=== PATIENT | female | born 1955 | race Caucasian/White ===

== ENCOUNTER → 2019-03-12 08:43 | Outpatient (BNVA) | payer BC, SELFPAY | PROVIDERS: PCP Registered Nurse; Visit Provider Registered Nurse | DX: E78.5 Hyperlipidemia, unspecified (principal); E55.9 Vitamin D deficiency, unspecified; I10 Essential (primary) hypertension; E03.9 Hypothyroidism, unspecified; F32.9 Major depressive disorder, single episode, unspecified; J30.2 Other seasonal allergic rhinitis | CPT/HCPCS: 80053; 80061; 82306; 84443; 85025 ==

== ENCOUNTER → 2019-08-20 11:23 | Outpatient (BNVA) | payer BC, SELFPAY | PROVIDERS: PCP Registered Nurse; Visit Provider Registered Nurse | DX: I10 Essential (primary) hypertension (principal); E55.9 Vitamin D deficiency, unspecified; E03.9 Hypothyroidism, unspecified; J30.2 Other seasonal allergic rhinitis; F32.9 Major depressive disorder, single episode, unspecified; E78.5 Hyperlipidemia, unspecified | CPT/HCPCS: 80053; 82306; 84443 ==

== ENCOUNTER → 2020-03-04 09:04 | Outpatient (BNVA) | payer OTHER, SELFPAY | PROVIDERS: PCP Registered Nurse; Visit Provider Registered Nurse | DX: I10 Essential (primary) hypertension (principal); E78.5 Hyperlipidemia, unspecified; E03.9 Hypothyroidism, unspecified; F32.9 Major depressive disorder, single episode, unspecified; J30.2 Other seasonal allergic rhinitis; K21.9 Gastro-esophageal reflux disease without esophagitis; Z00.00 Encounter for general adult medical examination without abnormal findings; E55.9 Vitamin D deficiency, unspecified | CPT/HCPCS: 80053; 80061; 81000; 84443; 85025 ==

== ENCOUNTER 2020-05-21 14:30 | Outpatient (CLI) | payer OTHER, SELFPAY ==
--- NOTE | 2020-05-21 15:00 | US_ITS ---
WS: [id number] RIGHT UPPER QUADRANT ULTRASOUND HISTORY: R10.11 - Right upper quadrant pain COMPARISON: None available. Liver: 20.8 cm in length. Marked enlargement of the liver with severe hepatic steatosis. Attenuation of the ultrasound due to the severe hepatic steatosis. The entire liver is not well visualized. No bi le duct dilatation or mass. Gallbladder: Normally distended gallbladder with no stones or wall thickening. CBD: 0.4 cm Pancreas: Not visualized. Right kidney: 13.2 cm in length. Normal size and echogenicity. No hydronephrosis or mass. Aorta and IVC: Unremarkable abdominal aorta and IVC. No ascites. US/US gall bladder [id number] IMPRESSION: 1. Limited RIGHT upper quadrant ultrasound due to body habitus. 2. Marked hepatomegaly and hepatic steatosis. 3. Negative gallbladder.
== END 2020-05-21 14:31 | disposition home or self-care (01) ==
PROVIDERS: PCP Registered Nurse; Visit Provider Registered Nurse
DX: R10.11 Right upper quadrant pain (principal); R16.0 Hepatomegaly, not elsewhere classified; K76.0 Fatty (change of) liver, not elsewhere classified
CPT/HCPCS: 76705; 81000

== ENCOUNTER → 2020-05-25 15:18 | Outpatient (BNVA) | payer OTHER, SELFPAY | PROVIDERS: PCP Registered Nurse; Visit Provider Registered Nurse | DX: R16.0 Hepatomegaly, not elsewhere classified (principal); Z71.3 Dietary counseling and surveillance | CPT/HCPCS: 80053; 86705; 86706; 86709; 86803; 87340 ==

== ENCOUNTER → 2020-11-17 11:12 | Outpatient (BNVA) | payer OTHER, SELFPAY | PROVIDERS: PCP Registered Nurse; Visit Provider Registered Nurse | DX: I10 Essential (primary) hypertension (principal); E03.9 Hypothyroidism, unspecified; Z12.31 Encounter for screening mammogram for malignant neoplasm of breast | CPT/HCPCS: 80053; 80061; 84443 ==

== ENCOUNTER → 2020-11-24 11:14 | Outpatient (BNVA) | payer OTHER, MEDICARE, SELFPAY | PROVIDERS: PCP Registered Nurse; Visit Provider Registered Nurse | DX: L98.9 Disorder of the skin and subcutaneous tissue, unspecified (principal) | CPT/HCPCS: 88305 ==

== ENCOUNTER → 2021-07-29 10:24 | Outpatient (BNVA) | payer MEDICARE, SELFPAY | PROVIDERS: PCP Registered Nurse; Visit Provider Registered Nurse | DX: E03.9 Hypothyroidism, unspecified (principal); R42 Dizziness and giddiness | CPT/HCPCS: 84443 ==

== ENCOUNTER → 2022-05-04 10:29 | Outpatient (BNVA) | payer MEDICARE, SELFPAY | PROVIDERS: PCP Registered Nurse; Visit Provider Registered Nurse | DX: F32.9 Major depressive disorder, single episode, unspecified (principal); I10 Essential (primary) hypertension; E55.9 Vitamin D deficiency, unspecified; E03.9 Hypothyroidism, unspecified; E78.5 Hyperlipidemia, unspecified | CPT/HCPCS: 80053; 80061; 82306; 82607; 84443; 85025 ==

== ENCOUNTER → 2022-05-12 10:14 | Outpatient (BNVA) | payer MEDICARE, SELFPAY | PROVIDERS: PCP Registered Nurse; Visit Provider Registered Nurse | DX: R73.9 Hyperglycemia, unspecified (principal); R16.0 Hepatomegaly, not elsewhere classified | CPT/HCPCS: 83036; 86141 ==

== ENCOUNTER → 2022-07-25 13:29 | Outpatient (BNVA) | payer MEDICARE, SELFPAY | PROVIDERS: PCP Registered Nurse; Visit Provider Registered Nurse | DX: E11.9 Type 2 diabetes mellitus without complications (principal) | CPT/HCPCS: 83036 ==

== ENCOUNTER 2022-08-12 13:36 | Outpatient (CLI) | payer MEDICARE, SELFPAY ==
--- NOTE | 2022-08-12 14:00 | XR_ITS ---
WS: [id number] SCREENING DEXA SCAN Overs[place] CLINICAL INFORMATION: M81.0 - Age-related osteoporosis without current patholog... COMPARISON: None. FINDINGS: The L1-L4 bone mineral density measures 1.346 g/cm2. This corresponds to a T score score of 1.4 and Z score of 1.8. Left femoral neck bone mineral density measures 1.036 g/cm2. This corresponds to a T score of 0.2 and Z score of 0.7. Right femoral neck bone mineral density measures 1.017 g/cm2. This corresponds to a T score 0.1of and Z score of 0.5. Mean femoral neck bone mineral density measures 1.027 g/cm2. This corresponds to a T score of 0.1 and Z score of 0.6. XR/XR DEXA axial skeleton* [id number] IMPRESSION: Normal bone mineralization. Patient's FRAX calculated 10 year probability for major osteoporotic fracture i s 7.5 % and osteoporotic hip fracture is 0.6%.
--- NOTE | 2022-08-12 14:30 | MM_ITS ---
WS: [id number] BILATERAL 3D TOMOSYNTHESIS DIGITAL SCREENING MAMMOGRAPHY WITH CAD CLINICAL INFORMATION: Z12.31 - Encounter for screening mammogram for malignant ... HISTORY: Screening mammogram. No current complaints. COMPARISON: None. TECHNIQUE: Bilateral CC and MLO views. FINDINGS: Scattered fibroglandular densities bilaterally. No suspicious focal mass, asymmetry, calcifications, or architectural distortion. No evidence of malignancy. Incidental punctate and lucent centered calci fications. Incidental RIGHT axillary tail lymph nodes. MM/[place] [id number] IMPRESSION: BI-RADS: 2-Benign FOLLOW UP: 1 Year Follow-up Recommend return to annual screening mammography.
== END 2022-08-12 13:37 | disposition home or self-care (01) ==
PROVIDERS: PCP Registered Nurse; Visit Provider Registered Nurse
DX: Z12.31 Encounter for screening mammogram for malignant neoplasm of breast (principal); M81.0 Age-related osteoporosis without current pathological fracture
CPT/HCPCS: 77063; 77067; 77080

== ENCOUNTER 2022-08-17 09:25 | Outpatient (RCR) | payer MEDICARE, SELFPAY | END 2022-08-19 23:59 | disposition home or self-care (01) | LOC: SPT 09:25 | PROVIDERS: PCP Registered Nurse; Visit Provider Registered Nurse | DX: M54.40 Lumbago with sciatica, unspecified side (principal) | CPT/HCPCS: 97161 ==

== ENCOUNTER 2022-08-27 18:53 | Emergency (ER) | payer MEDICARE, SELFPAY ==
[2022-08-27 18:58] VITALS: BP 185/77; PULSE 75; RESP 18; TEMP 36.6; O2SAT 96; BMI 40.1
--- NOTE | 2022-08-27 19:15 | ECG_ITS ---
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 Measurements Intervals [place] Rate: 71 P: -22 CT: 146 QRS: 14 QRSD: 106 T: 52 QT: 427 QTc: 465 Interpretive Statements SINUS RHYTHM Compared to ECG 09/16/2015 17:54:14 No significant changes Electronically Signed On 08-28-2022 9:43:13 CDT by Adan Covarrubias M.D. [id number]
[2022-08-27 19:17] LABS: Glucose Point of Care 108 mg/dL (70-110)
--- NOTE | 2022-08-27 19:19 | CTR_ITS ---
PROCEDURE INFORMATION: Exam: CT Head Without Contrast Exam date and time: 08/27/2022 7:32 PM Age: 67 years old Clinical indication: Stroke-like symptoms; Speech disturbance; Additional info: Episode of dysphasia. Hypertensive on monitor. History of TIA. TECHNIQUE: Imaging protocol: Computed tomography of the head without contrast. Radiation optimization: All CT scans at this facility use at least one of these dose optimization techniques: automated exposure control; mA and/or kV adjustment per patient size (includes targeted exams where dose is matched to clinical indication); or iterative reconstruction. Other technique: STROKE PROTOCOL was implemented. REPORTING DATA: Count of CT and Cardiac NM exams in prior 12 months: This patient has received 0 known CTs and 0 known cardiac nuclear medicine studies in the 12 months prior to the current study. COMPARISON: No relevant prior studies available. RADIATION DOSE METRICS: Total DLP (mGy-cm): 1085.08 FINDINGS: Brain: No hemorrhage. No edema. Mild diffuse cerebral atrophy. No mass effect. Cerebral ventricles: No ventriculomegaly. Paranasal sinuses: Visualized sinuses are unremarkable. No fluid levels. Mastoid air cells: Visualized mastoid air cells are well aerated. Bones/joints: Unremarkable. No acute fracture. Soft tissues: Unremarkable. CT/CT head thrombolytic [id number] IMPRESSION: No acute intracranial abnormality. ASSESSMENT: ASPECTS ([place] Stroke Program Early CT Score) is 10.
--- NOTE | 2022-08-27 19:19 | XRR_ITS ---
PROCEDURE INFORMATION: Exam: XR Chest Exam date and time: 08/27/2022 7:35 PM Age: 67 years old Clinical indication: Other: AMS TECHNIQUE: Imaging protocol: Radiologic exam of the chest. Views: 1 view. COMPARISON: CR XR chest 1V 10092 09/16/2015 11:56 AM FINDINGS: Lungs: No consolidation. Pleural spaces: No pleural effusion. No pneumothorax. Heart/Mediastinum: No cardiomegaly. Bones/joints: Visualized osseous structures are intact. XR/XR chest 1V portable [id number] IMPRESSION: No acute findings.
[2022-08-27 19:32] VITALS: BP 193/79; RESP 18
[2022-08-27 19:38] LABS: Basophils # 0.1 10^3/uL (0.0-0.1); Basophils % 0.7 %; Eosinophils # 0.2 10^3/uL (0.0-0.8); Eosinophils % 1.7 %; Hematocrit 50.7 % (37.0-47.0); Hemoglobin 16.2 g/dL (11.5-15.3); Lymphocytes # 4.3 10^3/uL (0.8-4.8); Lymphocytes % 37.9 %; Mean Corpuscular Hemoglobin 28.3 pg (28.0-34.0); Mean Corpuscular Volume 88.5 fl (81-99); Mean Platelet Volume 11.2 fL (7.4-10.4); Monocytes # 1.1 10^3/uL (0.2-0.9); Monocytes % 9.4 %; Neutrophils # 5.64 10^3/uL (1.8-7.7); Neutrophils % 49.9 %; Nucleated Red Blood Cells % 0 %; Platelet Count 237 10^3/cmm (130-400); Red Blood Count 5.73 10^6/uL (4.1-5.3); White Blood Count 11.3 10^3/uL (4.0-10.0)
[2022-08-27 19:50] LABS: Partial Thromboplastin Time 23.4 SECONDS (23.9-36.7)
[2022-08-27 19:52] LABS: Albumin Level 4.4 g/dL (3.5-5.2); Alkaline Phosphatase 91 U/L (35-105); Anion Gap 15.1 (5-19); Aspartate Amino Transferase 36 U/L (0-32); Blood Urea Nitrogen 17 mg/dL (8-23); Calcium 9.9 mg/dL (8.5-10.5); Carbon Dioxide 26 mmol/L (22-29); Chloride 98 mmol/L (98-107); Globulin 3.3 g/dL (1.3-4.6); Glomerular Filtration Rate 83.5 mL/min (90-130); Glucose 107 mg/dL (65-115); Osmolality Calculated 282 mOsm/kg (285-295); Potassium 4.1 mmol/L (3.5-5.1); Sodium 135 mmol/L (136-145); Total Bilirubin 0.3 mg/dL (0.15-1.2); Total Protein 7.7 g/dL (6.6-8.7)
[2022-08-27 20:02] LABS: Alanine Aminotransferase 60 U/L (0-33)
--- NOTE | 2022-08-27 20:10 | ECG_ITS ---
[facility] Test Date: 2022-08-27 Pat Name: Frida Ghosh Department: Room: Gender: Female Systems Navigator: : 1955 Requested By: Damien Russell Order Number: [id number] Leonie MD: Adan Covarrubias M.D. Measurements Intervals [place] Rate: 63 P: -23 ND: 141 QRS: 21 QRSD: 106 T: 54 QT: 447 QTc: 459 Interpretive Statements SINUS RHYTHM Compared to ECG 08/27/2022 19:20:32 No significant changes Electronically Signed On 08-28-2022 9:43:23 CDT by Adan Covarrubias M.D. [email or web address]/store/[id number]
--- NOTE | 2022-08-27 20:11 | ED_ITS ---
HPI - General Adult General: Chief complaint: General Medical Stated complaint: TP Possible send From Urgent Care Time Seen by Provider: 08/27/22 19:19 History of Present Illness: 67-year-old female who has not felt herself in 3 days or so. She tells a story of waking in bed with aching arms, diaphoretic, and not feeling well 2 nights ago. This lasted a while, but seem to self resolve. Yesterday she was fatigued and weak. This morning, she felt a bit better, but then began to have problem with her language. She evidently could not put words together appropriately, and for a bit, they came out as nonsense or not right. This seems to have resolved as well. Her blood pressure has been high today. She presented to urgent care, and was sent here due to concern for the possibility of stroke. Onset (ago): hour(s) Radiation: non-radiation Quality: other Pain Consistency: other Relieving factors: other Associated symptoms: Deny chest pain, confusion, dyspnea, headache(s), nausea, rash, palpitations or vomiting Review of Systems Const: Reports: body aches; Denies: fever(s) or chills Eyes: Denies: change in vision or blurry vision ENMT: Denies: throat pain Card: Denies: chest pain or palpitations Resp: Denies: dyspnea, productive cough or non-productive cough GI: Denies: abdominal pain, nausea or vomiting Musc: Denies: neck pain Skin/Breast: Denies: rash Neuro: Reports: other (difficulty with speech); Denies: headache(s), numbness in extremities, weakness in extremities, sensory changes, lack of coordination, difficulty walking, dizziness, vertigo, confusion, Slurred speech present or restless legs Psych: Denies: anxiety PFSH ED PFSH: Medical History Anxiety Depression Disorder of mitral valve Dyslipidemia Essential hypertension Seasonal allergies Skin lesion Vitamin D deficiency Family History Other Cancer Heart disease Hypertension Stroke Social History Smoking and tobacco status: never smoked Second hand smoke exposure: No Alcohol intake: never Substance/Drug Use: never Sexually active: Yes Do you think of yourself as: Straight/Heterosexual Current gender identity: Female Physical Exam Const: COMMON NORMALS: no acute distress and alert GENERAL APPEARANCE: cooperative; not ill appearing and not frail appearing HENMT: COMMON NORMALS: normocephalic, atraumatic and Normal external nose present HEAD & SCALP: normocephalic and atraumatic FACE & SINUS: normal facial exam and face symmetric NOSE: Normal external nose present Eye: COMMON NORMALS: Equal, round and reactive pupils present and EOMs intact bilaterally PUPIL: Yes Equal, round and reactive pupils present Neck/C-Spine: GENERAL: Yes trachea midline Chest: CHEST: Yes Symmetrical chest wall rise Resp: COMMON NORMALS: normal respiratory effort, No retractions, No use of accessory muscles and clear to auscultation bilaterally AUSCULTATION: clear to auscultation bilaterally Cardio: COMMON NORMALS: regular rate and regular rhythm RATE: regular rate RHYTHM: regular rhythm GI: COMMON NORMALS: Normal to inspection, nondistended, normoactive bowel so unds present Extremity: COMMON NORMALS: no pedal edema Neuro: DK COMA SCALE: document GCS findings [place] coma scale eye opening: Spontaneous [place] coma scale verbal response: Orientated [place] coma scale motor response: Obey commands Dk coma scale total score: 15 SENSORIUM/ORIENTATION: Yes alert COORDINATION/BALANCE: axcepv-kv-tvrj test normal and alfu-iq-xjlv test normal SPEECH: speech normal SENSORY EXAM: Yes extremities (intact) MOTOR EXAM: Pronator motor function not present, no tremor noted and Normal motor muscle tone present throughout COORDINATION: snjzbf-zi-[id number] test normal and xbtc-ev-eypa test normal Psych: COMMON NORMALS: mental status grossly normal, cooperative and speech normal SPEECH: Yes normal speech Skin: COMMON NORMALS: no rashes or lesions noted GENERAL SKIN EXAM: no rashes or lesions noted Course Vital Signs: Vital signs: Vital Signs Temperature 97.8 F 08/27/22 18:58 Pulse Rate 67 08/27/22 20:19 Respiratory Rate 18 08/27/22 20:19 Blood Pressure 162/77 08/27/22 20:19 Pulse Oximetry 96 08/27/22 20:19 Oxygen Delivery Me thod Room Air 08/27/22 20:19 [facility] - General Adult Medical Decision Making 67-year-old female with expressive aphasia that is now resolved. It was her only stroke symptom. Her NIH scale is 0. She was hypertensive on arrival, b lood pressure is improved currently. Urinalysis is negative. CBC shows white blood cell count of 11 with hemoglobin of 16. Her troponin was 22 at baseline, 22 at 2-hour recheck. CT of the head is negative. Chest x-ray is negative. Other laboratory is benign. She will be allowed home. She will need further outpatient follow-up and work-up. She is encouraged to increase her aspirin dosage to 325 mg daily. Lab Data 08/27/22 19:29 08/27/22 19:29 Radiology Impressions Chest X-Ray 08/27/22 19: IMPRESSION: No acute findings. Head CT 08/27/22 19: IMPRESSION: No acute intracranial abnormality. ASSESSMENT: ASPECTS ([place] Stroke Program Early CT Score) is 10. Laboratory Results WBC 11.3 10^3/uL (4.0-10.0) H 08/27/22 19:29 RBC 5.73 10^6/uL (4.1-5.3) H 08/27/22 19:29 Hgb 16.2 g/dL (11.5-15.3) H 08/27/22 19:29 Hct 50.7 % (37.0-47.0) H 08/27/22 19:29 MCV 88.5 fl (81-99) 08/27/22 19:29 MCH 28.3 pg (28.0-34.0) 08/27/22 19: MCHC 32.0 g/dL (30.0-36.0) 08/27/22 19: RDW 14.0 % (12.1-15.1) 08/27/22 19:29 Plt Count 237 10^3/cmm (130-400) 08/27/22 19:29 MPV 11.2 fL (7.4-10.4) H 08/27/22 19: Neut % (Auto) 49.9 % 08/27/22 19: Lymph % (Auto) 37.9 % 08/27/22 19:29 [place] % (Auto) 9.4 % 08/27/22 19:29 Eos % (Auto) 1.7 % 08/27/22 19: Baso % (Auto) 0.7 % 08/27/22 19: Neut # (Auto) 5.64 10^3/uL (1.8-7.7) 08/27/22 19: Lymph # (Auto) 4.3 10^3/uL (0.8-4.8) 08/27/22 19: [place] # (Auto) 1.1 10^3/uL (0.2-0.9) H 08/27/22: Eos # (Auto) 0.2 10^3/uL (0.0-0.8) 08/27/22: Baso # (Auto) 0.1 10^3/uL (0.0-0.1) 08/27/22: Nucleated RBC % (auto) 0 % 08/27/22: Nucleated RBCs # 0.0 /100WBC 08/27/22: PT 13.50 SECONDS (12.1-14.9) 08/27/22: INR 1.00 (0.8-1.2) 08/27/22: APTT 23.4 SECONDS (23.9-36.7) L 08/27/22 19:29 Sodium 135 mmol/L (136-145) L 08/27/22: Potassium 4.1 mmol/L (3.5-5.1) 08/27/22: Chloride 98 mmol/L (98-107) 08/27/22: Carbon Dioxide 26 mmol/L (22-29) 08/27/22: Anion Gap 15.1 (5-19) 08/27/22 19: BUN 17 mg/dL (8-23) 08/27/22 19: Creatinine 0.7 mg/dL (0.5-0.9) 08/27/22 19: GFR Calculation 83.5 mL/min (90-130) L 08/27/22 19: Glucose 107 mg/dL (65-115) 08/27/22: POC Glucose 103 mg/dL (70-110) 08/27/22 20:25 Calculated Osmolality 282 mOsm/kg (285-295) L 08/27/22: Calcium 9.9 mg/dL (8.5-10.5) 08/27/22 19: Total Bilirubin 0.3 mg/dL (0.15-1.2) 08/27/22 19:29 AST 36 U/L (0-32) H 08/27/22 19:29 ALT 60 U/L (0-33) H 08/27/22 19:29 Alkaline Phosphatase 91 U/L (35-105) 08/27/22 19:29 Creatine Kinase 55 U/L (26-192) 08/27/22 19:29 Troponin T Baseline 22 ng/L (0-10) H 08/27/22 19:29 Troponin T 120 Minute 21.98 ng/L (0-10) H 08/27/22 21:18 Delta Troponin T -0.02 ABS# (0-10) L 08/27/22 21:18 Total Protein 7.7 g/dL (6.6-8.7) 08/27/22 19:29 Albumin 4.4 g/dL (3.5-5.2) 08/27/22 19:29 Globulin 3.3 g/dL (1.3-4.6) 08/27/22 19:29 Urine Color Yellow (Yellow) 08/27/22 21:25 Urine Appearance Clear (CLEAR) 08/27/22 21:25 Urine pH 5 (5-7) 08/27/22 21:25 Ur Specific [place] 1.020 (1.005-1.030) 08/27/22 21:25 Urine Protein Neg (Negative) 08/27/22 21:25 Urine Glucose (UA) Norm (Normal) 08/27/22 21:25 Urine Ketones Negative (Negative) 08/27/22 21:25 Urine Blood Neg (Negative) 08/27/22 21:25 Urine Nitrate Negative (Negative) 08/27/22 21:25 Urine Bilirubin Neg (Negative) 08/27/22 21:25 Urine Urobilinogen Norm mg/dL (Negative) 08/27/22 21:25 Ur Leukocyte Esterase 1+ (Negative) H 08/27/22 21:25 Urine RBC None /hpf (0-2) 08/27/22 21:25 Urine WBC 5-10 /hpf (0-5) H 08/27/22 21:25 Ur Squamous Epith Cells 5-10 /hpf (0-5) H 08/27/22 21:25 Amorphous Sediment Not Reportable 08/27/22 21:25 Urine Bacteria Trace /hpf (NONE) 08/27/22 21:25 Urine Opiates Screen Negative ng/mL (Negative) 08/27/22 21:25 Ur Barbiturates Screen Negative ng/mL (Negative) 08/27/22 21:25 Ur Phencyclidine Scrn Negative ng/mL (Negative) 08/27/22 21:25 Ur Amphetamines Screen Negative ng/mL (Negative) 08/27/22 21:25 U Benzodiazepines Scrn Negative ng/mL (Negative) 08/27/22 21:25 Urine Cocaine Screen Negative ng/mL (Negative) 08/27/22 21:25 U Marijuana (THC) Screen Negative ng/mL (Negative) 08/27/22 21:25 Discharge Plan Discharge Patient Disposition: Home Clinical Impression: Expressive aphasia, Essential hypertension Condition: Stable Prescriptions: No Action aspirin [Adult Aspirin Regimen] 81 mg tablet,delayed release (DR/EC) 81 mg PO QDAY epinephrine [EpiPen 2-Taj] 0.3 mg/0.3 mL auto-injector 0.3 mg IM ONCE PRN omega-3 fatty acids [Fish Oil Concentrate] 1,000 mg capsule 1,000 mg PO QDAY multivitamin with iron Tablet 1 tab PO QDAY magnesium oxide 140 mg capsule 140 mg PO QDAY vitamin B complex [B Complex-Vitamin B12] Tablet 1 tab PO QDAY nystatin 100,000 unit/gram ointment 1 applic topical BID Qty: 30 0RF cholecalciferol (vitamin D3) 25 mcg (1,000 unit) capsule 1,000 unit PO QDAY Qty: 90 3RF loratadine [Allergy Relief (loratadine)] 10 mg tablet 10 mg PO QDAY Qty: 90 4RF nizatidine 300 mg capsule 300 mg PO .at h.s Qty: 90 4RF baclofen 10 mg tablet 10 mg PO BID PRN (Reason: neck strain) 30 Days Qty: 45 0RF tramadol 50 mg tablet 50 mg PO DAILY PRN (Reason: pain) 30 Days Qty: 15 1RF albuterol sulfate 90 mcg/actuation HFA aerosol inhaler 1 inh inhalation Q6H 30 Days Qty: 8.5 1RF amlodipine 10 mg tablet See Rx Instructions .ROUTE .COMPLEX Qty: 90 0RF Dose Instruction: Take 1 tablet by mouth once daily Rx Instructions: Take 1 tablet by mouth once daily buspirone 10 mg tablet See Rx Instructions .ROUTE .COMPLEX 30 Days Qty: 45 1RF Dose Instruction: TAKE 1/2 (ONE-HALF) TO 1 TABLET BY MOUTH TWICE DAILY NEEDED FOR PANIC ATTACKS FOR 30 DAYS Rx Instructions: TAKE 1/2 (ONE-HALF) TO 1 TABLET BY MOUTH TWICE DAILY NEEDED FOR PANIC ATTACKS FOR 30 DAYS levothyroxine [Euthyrox] 50 mcg tablet See Rx Instructions .ROUTE .COMPLEX Qty: 180 0RF Dose Instruction: Take 1 tablet by mouth once daily Rx Instructions: Take 1 tablet by mouth once daily montelukast 10 mg tablet See Rx Instructions .ROUTE .COMPLEX Qty: 90 0RF Dose Instruction: Take 1 tablet by mouth once daily Rx Instructions: Take 1 tablet by mouth once daily duloxetine 40 mg capsule,delayed release(DR/EC) 40 mg PO DAILY 30 Days Qty: 30 0RF fluticasone propionate 50 mcg/actuation spray,suspension See Rx Instructions .ROUTE .COMPLEX Qty: 16 0RF Dose Instruction: Use 2 spray(s) in each nostril once daily Rx Instructions: Use 2 spray(s) in each nostril once daily omeprazole 40 mg capsule,delayed release(DR/EC) See Rx Instructions .ROUTE .COMPLEX Qty: 90 0RF Dose Instruction: Take 1 capsule by mouth once daily Rx Instructions: Take 1 capsule by mouth once daily metoprolol tartrate 50 mg tablet See Rx Instructions .ROUTE .COMPLEX Qty: 180 0RF Dose Instruction: Take 1 tablet by mouth twice daily Rx Instructions: Take 1 tablet by mouth twice daily lisinopril 40 mg tablet See Rx Instructions .ROUTE .COMPLEX Qty: 90 0RF Dose Instruction: Take 1 tablet by mouth once daily for 90 days Rx Instructions: Take 1 tablet by mouth once daily for 90 days Discharge Orders: Discharge ED (Routine); Ordered 08/27/22 Ordered By: Damien Tillman Referrals: Ana Laura Carrington, RESOURCING CONSULTANT [Primary Care Provider] - Patient Instructions: Hypertension (ED), Opioid Safety, Pain Management Activity Restrictions/Additional Instructions: Check your blood pressure twice daily for the next several days, report numbers to your physician. Further outpatient work-up may be needed including ultrasound test of your carotids and heart. These can be set up as an outpatient. Return immediately to the emergency room for any problems with language or speech, headache, weakness, dizziness, or any other concerning symptoms. Increase your aspirin dosage to 325mg daily. Coding Level of Care Code ED [employer] Pipe Plant Supervisor for Connor Carcamo NIH stroke score NIHSS Level Of Consciousness - 1a: 0 Level Of Consciousness Questions - 1b: Both Correct Level Of Consciousness Commands - 1c: Both Correct Best Gaze - 2: Normal Visual Loz[place] - 3: No Visual Loss Facial Palsy - 4: Normal Motor Arm Right - 5: No Drift Motor Arm Left - 5: No Drift Motor Leg Right - 6: No Drift Motor Leg Left - 6: No Drift Limb Ataxia - 7: Absent Sensory - 8: Normal Best Language - 9: No Aphasia Dysarthia - 10: Normal Extinction And Inattention - 11: 0 Score Total Score: 0
[2022-08-27] MEDS: metoprolol tartrate 1 mg/1 mL SDV 5 mL 5 MG IVP (20:14)
[2022-08-27 20:19] VITALS: BP 162/77; PULSE 67; RESP 18; O2SAT 96
[2022-08-27 20:30] LABS: Glucose Point of Care 103 mg/dL (70-110)
[2022-08-27 20:43] LABS: Troponin(5th) Baseline 22 ng/L (0-10)
[2022-08-27 20:44] LABS: Creatine Phosphokinase 55 U/L (26-192)
[2022-08-27 21:34] LABS: Add Urine Microscopic? YES; Bilirubin Urine Neg (Negative); Blood Urine Neg (Negative); Glucose Urine UA Norm (Normal); Ketones Urine Negative (Negative); Leukocyte Esterase Urine 1+ (Negative); Nitrate Urine Negative (Negative); Protein Urine Neg (Negative); Urine Appearance Clear (CLEAR); Urine Color Yellow (Yellow); Urobilinogen Urine Norm (Negative); pH Urine 5 (5-7)
[2022-08-27 21:37] LABS: Troponin 5 2HR 21.98 ng/L (0-10); Troponin 5 2HR Delta -0.02 ABS# (0-10)
[2022-08-27 21:40] LABS: Bacteria Urine TRACE /hpf
[2022-08-27 21:43] LABS: Amphetamines Screen Urine Negative (Negative); Barbiturates Screen Urine Negative (Negative); Benzodiazepines Screen Urine Negative (Negative); Cocaine Screen Urine Negative (Negative); Opiate Screen Urine Negative (Negative); PCP Screen Urine Negative (Negative); THC Screen Urine Negative (Negative)
== END 2022-08-27 22:48 | disposition home or self-care (01) ==
PROVIDERS: Emergency Provider Emergency Medicine; PCP Registered Nurse
DX: R47.01 Aphasia (principal); I10 Essential (primary) hypertension; E78.5 Hyperlipidemia, unspecified; Z79.899 Other long term (current) drug therapy; Z79.82 Long term (current) use of aspirin
CPT/HCPCS: 36415; 36416; 70450; 71045; 80053; 80306; 81001; 82550; 82962; 84484; 85025; 85610; 85730; 93005; 96374; 99285; J3490

== ENCOUNTER 2022-09-10 20:41 | Emergency (ER) | payer MEDICARE, SELFPAY ==
[2022-09-10 20:53] VITALS: BP 228/96; PULSE 75; RESP 18; TEMP 36.6; O2SAT 94; BMI 40.1
--- NOTE | 2022-09-10 21:01 | W.ED.RECABL ---
HPI - Recheck/Abnormal Lab/Rx General: Chief Complaint: Recheck/Abnormal Lab/Rx Stated Complaint: High BP Time Seen by Provider: 09/10/22 20:55 Source: patient Mode of arrival: ambulatory Limitations: no limitations History of Present Illness: 67 yo female that states she has been having htn over the last 2 weeks. She states she has been having high readings today over 200. She has been taking her meds. She denies any chest pain and denies any shortness of breath. Denies fevers. denies any worsening or improving factors. Review of Systems Const: Denies: fever(s), chills, body aches or change in appetite ENMT: Denies: throat pain or dental pain Card: Denies: chest pain Resp: Denies: dyspnea GI: Denies: abdominal pain, nausea, vomiting or diarrhea Musc: Denies: neck pain or back pain Skin/Breast: Denies: rash Neuro: Denies: headache(s) PFSH ED PFSH: Medical History Anxiety Depression Disorder of mitral valve Dyslipidemia Essential hypertension Seasonal allergies Skin lesion Vitamin D deficiency Family History Other Cancer Heart disease Hypertension Stroke Social History Smoking and tobacco status: never smoked Second hand smoke exposure: No Alcohol intake: never Substance/Drug Use: never Sexually active: Yes Do you think of yourself as: Straight/Heterosexual Current gender identity: Female Physical Exam Const: COMMON NORMALS: no acute distress, patient oriented x3 and healthy appearing HENMT: COMMON NORMALS: normocephalic and atraumatic HEAD & SCALP: normocephalic and atraumatic Eye: COMMON NORMALS: conjunctivae normal CONJUNCTIVA: Yes conjunctivae normal Neck/C-Spine: COMMON NORMALS: supple Chest: COMMONS NORMALS: normal inspection of the chest Resp: COMMON NORMALS: normal respiratory effort Cardio: COMMON NORMALS: regular rate, regular rhythm and No murmurs present (Cardio) RATE: regular rate RHYTHM: regular rhythm GI: INSPECTION: Yes normal to inspection Extremity: COMMON NORMALS: normal to inspection Neuro: COMMON NORMALS: patient oriented x3, moves all extremities and no focal motor deficits Psych: COMMON NORMALS: mental status grossly normal, Normal thought process present and cooperative THOUGHT PROCESS: Normal thought process present Skin: COMMON NORMALS: no rashes or lesions noted and no wounds GENERAL SKIN EXAM: no rashes or lesions noted Course Vital Signs: Vital signs: Vital Signs Temperature 98 F 09/10/22 20:53 Pulse Rate 73 09/10/22 21:10 Respiratory Rate 16 09/10/22 21:10 Blood Pressure 200/75 09/10/22 21:10 Pulse Oximetry 96 09/10/22 21:10 MDM - Recheck/Abnormal Lab/Rx Medical Decision Making Patient presents with hypertension asymptomatic blood works normal we will increase her metoprolol from 50 twice a day to 75 twice a day she is to follow-up with PCP and return if worsening she understands agrees to plan. Medical Records I reviewed the patient's medical records. Lab Data I reviewed the patient's lab results. 09/10/22 21:06 09/10/22 21:06 Laboratory Results WBC 10.6 10^3/uL (4.0-10.0) H 09/10/22 21:06 RBC 5.67 10^6/uL (4.1-5.3) H 09/10/22 21:06 Hgb 16.0 g/dL (11.5-15.3) H 09/10/22 21:06 Hct 49.5 % (37.0-47.0) H 09/10/22 21:06 MCV 87.3 fl (81-99) 09/10/22 21:06 MCH 28.2 pg (28.0-34.0) 09/10/22 21:06 MCHC 32.3 g/dL (30.0-36.0) 09/10/22 21:06 RDW 13.6 % (12.1-15.1) 09/10/22 21:06 Plt Count 208 10^3/cmm (130-400) 09/10/22 21:06 MPV 10.9 fL (7.4-10.4) H 09/10/22 21:06 Neut % (Auto) 47.3 % 09/10/22 21:06 Lymph % (Auto) 40.1 % 09/10/22 21:06 [place] % (Auto) 9.3 % 09/10/22 21:06 Eos % (Auto) 2.1 % 09/10/22 21:06 Baso % (Auto) 0.8 % 09/10/22 21:06 Neut # (Auto) 5.04 10^3/uL (1.8-7.7) 09/10/22 21:06 Lymph # (Auto) 4.3 10^3/uL (0.8-4.8) 09/10/22 21:06 [place] # (Auto) 1.0 10^3/uL (0.2-0.9) H 09/10/22 21:06 Eos # (Auto) 0.2 10^3/uL (0.0-0.8) 09/10/22 21:06 Baso # (Auto) 0.1 10^3/uL (0.0-0.1) 09/10/22 21:06 Nucleated RBC % (auto) 0 % 09/10/22 21:06 Nucleated RBCs # 0.0 /100WBC 09/10/22 21:06 Sodium 135 mmol/L (136-145) L 09/10/22 21:06 Potassium 3.8 mmol/L (3.5-5.1) 09/10/22 21:06 Chloride 99 mmol/L (98-107) 09/10/22 21:06 Carbon Dioxide 26 mmol/L (22-29) 09/10/22 21:06 Anion Gap 13.8 (5-19) 09/10/22 21:06 BUN 15 mg/dL (8-23) 09/10/22 21:06 Creatinine 0.7 mg/dL (0.5-0.9) 09/10/22 21:06 GFR Calculation 83.5 mL/min (90-130) L 09/10/22 21:06 Glucose 110 mg/dL (65-115) 09/10/22 21:06 Calculated Osmolality 281 mOsm/kg (285-295) L 09/10/22 21:06 Calcium 10.0 mg/dL (8.5-10.5) 09/10/22 21:06 EKG Data EKG 1: I personally reviewed and interpreted this EKG as follows: EKG interpretation date: 09/10/22 EKG interpretation time: 21:00 Interpretation: nsr hr [address] or t wave abnormalities qrs 106 qtc 436 Discharge Plan Discharge Patient Disposition: Home Clinical Impression: Essential hypertension Condition: Stable Prescriptions: New metoprolol tartrate 75 mg tablet 75 mg PO BID Qty: 60 0RF Discontinued metoprolol tartrate 50 mg tablet See Rx Instructions .ROUTE .COMPLEX Qty: 180 0RF Dose Instruction: Take 1 tablet by mouth twice daily Rx Instructions: Take 1 tablet by mouth twice daily No Action aspirin [Adult Aspirin Regimen] 81 mg tablet,delayed release (DR/EC) 81 mg PO QDAY epinephrine [EpiPen 2-Taj] 0.3 mg/0.3 mL auto-injector 0.3 mg IM ONCE PRN omega-3 fatty acids [Fish Oil Concentrate] 1,000 mg capsule 1,000 mg PO QDAY multivitamin with iron Tablet 1 tab PO QDAY magnesium oxide 140 mg capsule 140 mg PO QDAY vitamin B complex [B Complex-Vitamin B12] Tablet 1 tab PO QDAY nystatin 100,000 unit/gram ointment 1 applic topical BID Qty: 30 0RF cholecalciferol (vitamin D3) 25 mcg (1,000 unit) capsule 1,000 unit PO QDAY Qty: 90 3RF loratadine [Allergy Relief (loratadine)] 10 mg tablet 10 mg PO QDAY Qty: 90 4RF nizatidine 300 mg capsule 300 mg PO .at h.s Qty: 90 4RF baclofen 10 mg tablet 10 mg PO BID PRN (Reason: neck strain) 30 Days Qty: 45 0RF tramadol 50 mg tablet 50 mg PO DAILY PRN (Reason: pain) 30 Days Qty: 15 1RF Savella 12.5 mg tablet 12.5 mg PO DAILY 30 Days Qty: 30 0RF fluoxetine [Prozac] 20 mg capsule 20 mg PO DAILY 30 Days Qty: 30 0RF albuterol sulfate 90 mcg/actuation HFA aerosol inhaler 1 inh inhalation Q6H 30 Days Qty: 8.5 1RF amlodipine 10 mg tablet See Rx Instructions .ROUTE .COMPLEX Qty: 90 0RF Dose Instruction: Take 1 tablet by mouth once daily Rx Instructions: Take 1 tablet by mouth once daily buspirone 10 mg tablet See Rx Instructions .ROUTE .COMPLEX 30 Days Qty: 45 1RF Dose Instruction: TAKE 1/2 (ONE-HALF) TO 1 TABLET BY MOUTH TWICE DAILY NEEDED FOR PANIC ATTACKS FOR 30 DAYS Rx Instructions: TAKE 1/2 (ONE-HALF) TO 1 TABLET BY MOUTH TWICE DAILY NEEDED FOR PANIC ATTACKS FOR 30 DAYS levothyroxine [Euthyrox] 50 mcg tablet See Rx Instructions .ROUTE .COMPLEX Qty: 180 0RF Dose Instruction: Take 1 tablet by mouth once daily Rx Instructions: Take 1 tablet by mouth once daily montelukast 10 mg tablet See Rx Instructions .ROUTE .COMPLEX Qty: 90 0RF Dose Instruction: Take 1 tablet by mouth once daily Rx Instructions: Take 1 tablet by mouth once daily fluticasone propionate 50 mcg/actuation spray,suspension See Rx Instructions .ROUTE .COMPLEX Qty: 16 0RF Dose Instruction: Use 2 spray(s) in each nostril once daily Rx Instructions: Use 2 spray(s) in each nostril once daily omeprazole 40 mg capsule,delayed release(DR/EC) See Rx Instructions .ROUTE .COMPLEX Qty: 90 0RF Dose Instruction: Take 1 capsule by mouth once daily Rx Instructions: Take 1 capsule by mouth once daily lisinopril 40 mg tablet See Rx Instructions .ROUTE .COMPLEX Qty: 90 0RF Dose Instruction: Take 1 tablet by mouth once daily for 90 days Rx Instructions: Take 1 tablet by mouth once daily for 90 days Discharge Orders: Discharge ED (Routine); Ordered 09/10/22 Ordered By: Gavino Galindo Referrals: Ana Laura Carrington FNP [Primary Care Provider] - Discharge Diet: Advance as tolerated Discharge Activity: Resume usual activity Patient Instructions: Hypertension (ED) Coding Level of Care Code ED Editorial Intern for Connor Carcamo
[2022-09-10] MEDS: labetalol 5 mg/mL SDV 20mL 10 MG IVP (21:09)
[2022-09-10 21:10] VITALS: BP 200/75; PULSE 73; RESP 16; O2SAT 96
[2022-09-10 21:21] LABS: Basophils # 0.1 10^3/uL (0.0-0.1); Basophils % 0.8 %; Eosinophils # 0.2 10^3/uL (0.0-0.8); Eosinophils % 2.1 %; Hematocrit 49.5 % (37.0-47.0); Lymphocytes # 4.3 10^3/uL (0.8-4.8); Lymphocytes % 40.1 %; Mean Corpuscular HGB Conc 32.3 g/dL (30.0-36.0); Mean Corpuscular Hemoglobin 28.2 pg (28.0-34.0); Mean Corpuscular Volume 87.3 fl (81-99); Mean Platelet Volume 10.9 fL (7.4-10.4); Monocytes % 9.3 %; Neutrophils # 5.04 10^3/uL (1.8-7.7); Neutrophils % 47.3 %; Nucleated Red Blood Cells % 0 %; Platelet Count 208 10^3/cmm (130-400); Red Blood Count 5.67 10^6/uL (4.1-5.3); Red Cell Distribution Width 13.6 % (12.1-15.1); White Blood Count 10.6 10^3/uL (4.0-10.0)
[2022-09-10 21:39] LABS: Anion Gap 13.8 (5-19); Blood Urea Nitrogen 15 mg/dL (8-23); Carbon Dioxide 26 mmol/L (22-29); Chloride 99 mmol/L (98-107); Glomerular Filtration Rate 83.5 mL/min (90-130); Glucose 110 mg/dL (65-115); Osmolality Calculated 281 mOsm/kg (285-295); Potassium 3.8 mmol/L (3.5-5.1); Sodium 135 mmol/L (136-145)
[2022-09-10 22:00] VITALS: BP 160/80; PULSE 73; RESP 16; O2SAT 92
== END 2022-09-10 22:03 | disposition home or self-care (01) ==
PROVIDERS: Emergency Provider Emergency Medicine; PCP Registered Nurse
DX: I10 Essential (primary) hypertension (principal); Z79.82 Long term (current) use of aspirin; E78.5 Hyperlipidemia, unspecified
CPT/HCPCS: 36415; 80048; 85025; 96374; 99284; J3490

== ENCOUNTER → 2023-02-02 08:36 | Outpatient (BNVA) | payer MEDICARE, SELFPAY | PROVIDERS: PCP Registered Nurse; Visit Provider Registered Nurse | DX: T78.40XA Allergy, unspecified, initial encounter (principal) | CPT/HCPCS: 86003 ==

== ENCOUNTER → 2023-02-06 11:18 | Outpatient (BNVA) | payer MEDICARE, SELFPAY | PROVIDERS: PCP Registered Nurse; Visit Provider Registered Nurse | DX: J32.9 Chronic sinusitis, unspecified (principal); J06.9 Acute upper respiratory infection, unspecified | CPT/HCPCS: 87400; 87426 ==

== ENCOUNTER 2023-02-23 09:42 | Outpatient (CLI) | payer MEDICARE, SELFPAY ==
--- NOTE | 2023-02-23 10:19 | OP.DCCON ---
Reason for Visit: [id number], Z91.018 - Allergy to other foods, alpha gal Person Interviewed: Patient Medical History, Labs and Background: Pt has done a lot of research and mostly wanted me to print a graph which showed her allergies - where they would fit on a spectrum of highly allergenic to not allergenic which I could not do. Height: 5 ft 4 in Weight: 237 lb BMI: 40.8 kg/m2 (Class 3 obesity) Weight History: We didn't discuss wt history as it was not her reason for being here. Concerns and Goals: Frida wanted me to print a graph which showed her allergies - where they would fit on a spectrum of highly allergenic to not allergenic. And she wanted me to interpret the results. As we looked at the results on her phone since I couldn't see anything in her chart, we added a list of those with (H) next to them to the Alpha Gal infographic. Physical Activity: She mentioned problems with her hip and said you need to be active . Other Feeding Issues: None Food Allergies and Sensitivities: Because she has an allergy to dust, Frida said it is sometimes difficult to separate her food allergies from dust she may have encountered. Though she said she has never had trouble breathing or hives, she does carry an epipen. Meds, Supplements & Other: Her daughter does a lot of research and has helped her mom with ideas or herbs and spices. 24 Hour Recall: Breakfast Time: Snack Time: Lunch Time: Snack Time: Dinner Time: Snack Time: Eating Out: Frida loves ice cream and chocolate and other sweets. Soda vs Milk vs Water: She drinks approximately 64 ounces of water/day and maybe 1 cup of half caffeine coffee. Currently she drinks oatmilk, but usually just for cereal. Additional Comments: We discussed the basics of following an Alpha Gal diet and also discussed her other allergies to tomatoes, wheat, rye, barley, and potatoes. Recommendations: Assessment: Frida had researched about alpha gal and seemed familiar with the typical restrictions. Her main concern was not diet, but interpreting her allergy results for other foods. At one point she said she wanted me to print out the results and graph them so that she could see where her results landed. I told her I couldn't do that, but even if I could, would it make a difference in how she responded to the results showing that she was allergic. Diagnosis: Altered nutrition related labs r/t alpha gal syndrome dx AEB results showed alpha gal as well as wheat, barley, rye, tomato, potato among others. Intervention: When I asked if it made a difference where she was on a graph that I couldn't print she said that did help her see that maybe it wouldn't matter, and that what mattered was that she was tested high in certain groups. I emphasized her need to monitor how she responded to the foods that both alpha gal and her other test results restricted. She understood that, but was also willing to eat them if she didn't have a reaction, or just a tiny one. I also gave her an alpha gal handbook put together by 2 dietitians which has a lot of information and opportunities to sign up for membership and meal plans, etc. In the end I think she will do what she wants. There was no expressed interest in weight loss or managing her food, but more in understanding where she ranked on the tests. I gave her my work email for further questions. Coding Level of Care Code Nutrition/Individ/Init 60 min Time Spent (min) 60
== END 2023-02-23 09:43 | disposition home or self-care (01) ==
LOC: DIET 09:43
PROVIDERS: PCP Registered Nurse; Visit Provider Registered Nurse
DX: Z71.3 Dietary counseling and surveillance (principal); Z91.014 Allergy to mammalian meats; Z91.018 Allergy to other foods; E55.9 Vitamin D deficiency, unspecified; Z68.41 Body mass index [BMI] 40.0-44.9, adult
CPT/HCPCS: 97802

== ENCOUNTER → 2023-03-21 11:11 | Outpatient (BNVA) | payer MEDICARE, SELFPAY | PROVIDERS: PCP Registered Nurse; Visit Provider Registered Nurse | DX: E78.5 Hyperlipidemia, unspecified (principal) | CPT/HCPCS: 80061 ==

== ENCOUNTER → 2023-10-02 14:12 | Outpatient (BNVA) | payer MEDICARE, SELFPAY | PROVIDERS: PCP Registered Nurse; Visit Provider Registered Nurse | DX: I10 Essential (primary) hypertension (principal); F32.A Depression, unspecified; E03.9 Hypothyroidism, unspecified; E55.9 Vitamin D deficiency, unspecified | CPT/HCPCS: 80053; 80061; 82306; 82607; 82746; 84439; 84443; 85025 ==

== ENCOUNTER 2024-02-15 11:27 | Outpatient (CLI) | payer MEDICARE, SELFPAY ==
--- NOTE | 2024-02-15 12:15 | USCV_ITS ---
Frida Ghosh Age: 68 Gender: F : 1955 Exam Date: 02/15/2024 11:46 Ordering Phys: Ana Laura Carrington CARBON PRINTER Technologist: ANA MARIA Exam Location: [facility] – [place] Indication: Left Bruit Risk Factors: Previous Vascular Surgery: Right Brachial BP: / Left Brachial BP: / Right Left Velocity (cm/s) Spectral Plaque Velocity (cm/s) Spectral Plaque Syst/Diast Broadening Syst/Diast Broadening 83.00/ 18.10 Prox CCA 89.70 / 19.40 76.50/ 16.80 Mid CCA 67.70 / 12.50 70.00/ 18.10 Distal CCA 95.30 / 16.80 78.20/ 19.40 Prox ICA 82.30 / 16.80 94.90/ 23.60 Mid ICA 93.30 / 22.10 72.10/ 23.10 Distal ICA 110.10/ 24.70 126.10 ECA 79.50 1.10 ICA/CCA 0.90 Antegrade Vertebral Antegrade 29.10/ 9.70 cm/s 43.70/ 13.40 cm/s Tri Subclavian Tri 97.40 115.3 0 FINDINGS Comparison: none available. Diffuse bilateral scattered calcified plaque and intimal thickening throughout the common carotid arteries and extending through the bifurcation. No significant elevation of systolic or diastolic velocities. CONCLUSIONS Bilateral ICA stenosis less than 50%. Diffuse mild carotid atherosclerosis. Dr. Layla House DO (Electronically Signed) Final Date: 15 February 2024 14:47 S
--- NOTE | 2024-02-15 12:45 | USCV_ITS ---
Frida Ghosh Age: 68 Gender: F : 1955 Exam Date: 02/15/2024 12:00 Ordering Phys: Ana Laura Carrington STEWARD/STEWARDESS [employer]IE[employer] VESSEL Technologist: SHYANNE [place] [facility] [place]: M[place]UR BP: 130 / 79 HR: 56 Rhythm: Atrial fibrillation Technical Quality: Adequate MEASUREMENTS (Male / Female) Normal Values 2D ECHO LVOT Diameter 2.0 cm LV Ejection Fraction MOD 4C 60.2 % LV Ejection Fraction MOD 2C 60.9 % LV Ejection Fraction 2C AL 62.3 % LA Diameter 3.8 cm RA Systolic Volume 4C AL 52.2 ml RA Systolic Volume 4C MOD 50.3 ml LA Sys Volume AL 85.4 cm cubed LA Sys Volume Index AL 37.1 cm cubed/m squared Aorta at Sinotubular Diameter 1.9 cm IVC Diameter 1.5 cm M-MODE LA Ao Ratio MM 1.3 AV Cusp Separation MM 1.0 cm DOPPLER AV Peak Velocity 500.0 cm/s LVOT Peak Velocity 136.0 cm/s AV Area Cont Eq vti 0.9 cm squared AV Area Cont Eq pk 0.8 cm squared MV Peak Velocity 256.2 cm/s MV Area PHT 2.8 cm squared Mitral E to A Ratio 2.2 TR Peak Velocity 166.0 cm/s TR Peak Gradient 11.0 mmHg TR Mean Velocity 142.0 cm/s TR Mean Gradient 8.4 mmHg TR Velocity Time Integral 54.9 cm TV Peak E Velocity 39.0 cm/s PV Peak Velocity 183.0 cm/s RV Ejection Time 0.4 s FINDINGS Left Ventricle Left ventricle is normal in size. LV systolic function is normal with EF of 55-60%. No regional wall motion abnormalities. Right Ventricle Normal in size and function Right Atrium Normal in size Left Atrium Normal in size Mitral Valve Severe mitral annular calcification. Moderate mitral stenosis with mean gradient across mitral valve of 5.39mmHg. Mild to moderate mitral regurgitation. Aortic Valve Aortic valve is thickened and calcified. Severe aortic valve stenosis with mean gradient across aortic valve of 47mmHg and aortic valve area of 0.92cm2. Tricuspid Valve Insufficient TR jet to calculate RVSP Pulmonic Valve Not well visualized Pericardium Normal Aorta Normal in size IVC Appears to be normal CONCLUSIONS LV systolic function is normal with EF of 55-60% Moderate mitral stenosis Mild to moderate mitral regurgitation. Severe aortic valve stenosis with mean gradient across aortic valve of 47mmHg and aortic valve area of 0.92cm2. No comparison studies are available. Judson Brand MD (Electronically Signed) Final Date: 15 February 2024 20:34 S
== END 2024-02-15 11:28 | disposition home or self-care (01) ==
LOC: RAD 11:30
PROVIDERS: PCP Registered Nurse; Visit Provider Registered Nurse
DX: I35.2 Nonrheumatic aortic (valve) stenosis with insufficiency (principal); I34.0 Nonrheumatic mitral (valve) insufficiency; I34.2 Nonrheumatic mitral (valve) stenosis; R01.1 Cardiac murmur, unspecified; R09.89 Other specified symptoms and signs involving the circulatory and respiratory systems; Z82.3 Family history of stroke; R42 Dizziness and giddiness
CPT/HCPCS: 93306; 93880

== ENCOUNTER 2024-03-20 17:27 | Emergency (ER) | payer MEDICARE, SELFPAY ==
[2024-03-20] VITALS (8 sets, daily range): BP systolic 121–134; BP diastolic 67–79; PULSE 75–93; RESP 18; TEMP 37.3; O2SAT 90–95; BMI 43.9
--- NOTE | 2024-03-20 17:42 | XRR_ITS ---
PROCEDURE INFORMATION: Exam: XR Chest Exam date and time: 03/20/2024 6:04 PM Age: 68 years old Clinical indication: Shortness of breath; Additional info: SOB TECHNIQUE: Imaging protocol: Radiologic exam of the chest. Views: 1 view. COMPARISON: CR (CHEST, ) 08/27/2022 7:35 PM FINDINGS: Lungs: Opacities in the right hilar and infrahilar station. Pleural spaces: Unremarkable. No pleural effusion. No pneumothorax. Heart/Mediastinum: Unremarkable. No cardiomegaly. Bones/joints: Unremarkable. XR/XR chest 1V portable [id number] IMPRESSION: Opacities in the right hilar and infrahilar station.
--- NOTE | 2024-03-20 17:44 | W.ED.SOB ---
HPI - SOB/Dyspnea General: Chief Complaint: Abdominal Pain Stated Complaint: SOB, Abd pain, weakness Time Seen by Provider: 03/20/24 17:30 Source: patient and EMS Mode of arrival: EMS Limitations: no limitations History of Present Illness: HPI Narrative: Patient is a 68-year-old female who presents the emergency department complaining of shortness of breath that is worsening over the past month. She states that beginning of the month she had an echocardiogram that showed severe aortic stenosis, also has a history of mitral valve issues. She has appointment with cardiology in [facility] tomorrow, where she states she is set to undergo a CT scan, unsure of what. She was found to be 89% SpO2 on room air by EMS, so she was placed on 4 L. She does not regularly use O2 at home and has no history of asthma or COPD. No history of heart attacks or strokes, has never been diagnosed with heart failure or A-fib. States that shortness of breath is worse with exertion, and she cannot lay flat at night now due to the amount of orthopnea she has. 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 MD elicited complaint: shortness of breath Pertinent past history: other (Valvular heart disease) Onset (ago): month(s) Timing: constant and progressively worsening Severity: moderate Exacerbating factors: lying flat and exertion Relieving factors: nothing Associated symptoms: Deny abdominal pain, chest pain, fever(s), lightheadedness, nausea, palpitations, syncope or vomiting Treatment prior to arrival: oxygen Related Data Home Medications Medication Instructions Recorded Confirmed magnesium oxide 140 mg capsule 140 mg PO QDAY 03/12/19 02/19/24 multivitamin with iron 1 tab PO QDAY 03/12/19 02/19/24 omega-3 fatty acids 1,000 mg 1,000 mg PO QDAY 03/12/19 02/19/24 capsule (Fish Oil Concentrate) vitamin B complex (B 1 tab PO QDAY 03/12/19 02/19/24 Complex-Vitamin B12 tablet) red yeast rice 600 mg capsule 600 mg PO DAILY 03/21/23 02/19/24 aspirin 81 mg tablet,delayed 162 mg PO QDAY 02/19/24 02/19/24 release (Adult Aspirin Regimen) Previous Rx's Medication Instructions Recorded nystatin 100,000 unit/gram topical 1 applic topical BID #30 grams 05/05/20 ointment epinephrine 0.3 mg/0.3 mL 0.3 mg (0.3 mL) IM Q4H PRN 01/24/23 injection, auto-injector (EpiPen anaphylaxis #2 ea 2-Taj) mometasone 100 mcg/actuation HFA 1 inh inhalation BID #13 grams 12/13/23 aerosol inhaler (Asmanex HFA) amlodipine 10 mg tablet See Rx Instructions .Route 01/05/24 .COMPLEX #90 tabs buspirone 10 mg tablet See Rx Instructions .Route 01/05/24 .COMPLEX #180 tabs fluoxetine 20 mg tablet See Rx Instructions .Route 01/05/24 .COMPLEX #180 tabs pantoprazole 20 mg tablet,delayed See Rx Instructions .Route 01/05/24 release .COMPLEX #90 tabs levothyroxine 50 mcg tablet See Rx Instructions .Route 01/19/24 .COMPLEX #180 tabs erythromycin 5 mg/gram (0.5 %) eye 1 applic ophthalmic (eye) DAILY 02/23/24 ointment (3.5 gram tube) #3.5 grams metoprolol tartrate 75 mg tablet See Rx Instructions .Route 02/29/24 .COMPLEX #180 tabs montelukast 10 mg tablet See Rx Instructions .Route 02/29/24 .COMPLEX #90 tabs albuterol sulfate 90 mcg/actuation 1 inh inhalation Q6H PRN shortness 03/20/24 aerosol inhaler of breath or wheezing #6.7 grams azithromycin 500 mg tablet 500 mg PO DAILY 5 days #5 tabs 03/20/24 prednisone 20 mg tablet 40 mg (2 x 20 mg) PO ONCE 5 days 03/20/24 #10 tabs Allergies Allergy/AdvReac Type Severity Reaction Status Date / Time clindamycin [From Cleocin] Allergy Unknown unknown Verified 01/24/24 11:02 ezetimibe [From Zetia] Allergy Unknown unknown Verified 01/24/24 11:02 gemfibrozil [From Lopid] Allergy Unknown unknown Verified 01/24/24 11:02 Penicillins Allergy Unknown Unknown Verified 01/24/24 11:02 Sulfa (Sulfonamide Allergy Unknown unknown Verified 01/24/24 11:02 Antibiotics) Alpha-Gal Allergy Unknown Verified 12/04/24 11:02 (Xusyupicx-Kdxyg-3,3-Gala Review of Systems General: Reports: 10 or more systems reviewed and unremarkable except in HPI and below Const: Denies: fever(s), chills, change in weight or fatigue Card: Reports: edema; Denies: chest pain, palpitations, lightheadedness or syncope Resp: Reports: dyspnea and non-productive cough; Denies: wheezing GI: Denies: abdominal pain, nausea, vomiting or diarrhea : Reports: flank pain Musc: Reports: back pain; Denies: neck pain Skin/Breast: Denies: rash Neuro: Denies: headache(s), numbness in extremities or weakness in extremities PFSH ED PFSH: Medical History Family history of stroke or transient ischemic attack in mother Mother in 40's with stroke Systolic murmur Anxiety Skin lesion Disorder of mitral valve Seasonal allergies Depression Dyslipidemia Vitamin D deficiency Essential hypertension Family History Other Cancer Heart disease Hypertension Stroke Social History Smoking and tobacco/nicotine status: never used tobacco/nicotine Second hand smoke exposure: No Alcohol intake: never Substance/Drug Use: never Sexually active: Yes Do you think of yourself as: Straight/Heterosexual Current gender identity: Female Physical Exam Const: COMMON NORMALS: patient oriented x3 and no limitations GENERAL APPEARANCE: cooperative NUTRITIONAL APPEARANCE: obese ORIENTATION/CONSCIOUSNESS: Yes awake OTHER: Respiratory distress noted HENMT: COMMON NORMALS: normocephalic, atraumatic and moist oral mucous membranes HEAD & SCALP: normocephalic and atraumatic Eye: COMMON NORMALS: EOMs intact bilaterally and conjunctivae normal CONJUNCTIVA: Yes conjunctivae normal Neck/C-Spine: COMMON NORMALS: full ROM, no JVD and No carotid bruits Chest: COMMONS NORMALS: normal inspection of the chest Resp: COMMON NORMALS: No retractions and No use of accessory muscles EFFORT & INSPECTION: Yes respiratory distress OTHER: Seemingly diminished breath sounds throughout, speaking in choppy sentences Cardio: COMMON NORMALS: no JVD, regular rate, regular rhythm, No gallops present (Cardio), No clicks present (Cardio) and No rub (Cardio) RATE: regular rate RHYTHM: regular rhythm OTHER: Prominent systolic ejection murmur heard throughout Back/Pelvis: OTHER: No reproducible tenderness to palpation Extremity: COMMON NORMALS: full ROM and no joint enlargement NARRATIVE EXTREMITY EXAM: 2+ pitting edema bilaterally addition Neuro: COMMON NORMALS: patient oriented x3, moves all extremities, no focal motor deficits and no sensory deficits noted Skin: COMMON NORMALS: no rashes or lesions noted GENERAL SKIN EXAM: no rashes or lesions noted Course Vital Signs: Vital signs: Vital Signs Temperature 99.1 F 03/20/24 17:30 Pulse Rate 86 03/20/24 21:21 Respiratory Rate 18 03/20/24 21:21 Blood Pressure 128/67 03/20/24 19:37 Pulse Oximetry 95 03/20/24 21:21 Oxygen Delivery Me thod Room Air 03/20/24 21:21 MDM - SOB/Dyspnea Medical Decision Making Patient presented by ambulance for hypoxia and shortness of breath worsening over the past month. She was diagnosed with aortic stenosis about a month ago, is set to see cardiology at [facility] tomorrow for CT scan and further workup. She arrived on 4 L as EMS had reported she was in the upper 80s on O2, she was taken off of O2 here in the ED and has not required oxygen to maintain above 90%. She was given a breathing treatment and upon recheck had stated that she felt significantly better. Labs were obtained did show elevation of white count with mild left shift. Her BNP was elevated at 2517, she was given 60 mg of Lasix through an IV. There was some peripheral edema on exam, heart sounds did not indicate any fluid buildup that I could appreciate, though there was significant systolic ejection murmur. X-ray showing some opacities, ordered a CT to further evaluate for any potential pneumonia or even a pulmonary embolism to explain the sudden worsening shortness of breath, this was negative. Her baseline troponin was negative and her EKG reviewed with physician showing normal sinus rhythm with no acute ST segment changes or electrical alternans. She did not have a history of COPD. With her elevation in white count, will start on a Z-Taj but will also begin steroids for potential reactive airways disease. Ultimately I think her valvular heart disease is the major reason for her worsening shortness of breath, and she does have follow-up tomorrow for further workup. Clinically stable at this time for discharge with close outpatient follow-up as mentioned, encouraged her to return with any severe worsening of shortness of breath or chest pain. She agrees with this plan. Discussed case with Dr. Britt. Lab Data 03/20/24 17:39 03/20/24 17:39 Labs/Radiology: Radiology Impressions Chest X-Ray 03/20/24 17:42 IMPRESSION: Opacities in the right hilar and infrahilar station. Chest CTA 03/20/24 19:41 IMPRESSION: 1. No pulmonary emboli. 2. Geographic regions hypoattenuation consistent with air trapping possibly secondary to small airways disease. 3. No focal consolidations. Laboratory Results WBC 16.90 10^3/uL (3.29-11.43) H 03/20/24 17:39 RBC 4.83 10^6/uL (3.85-5.65) 03/20/24 17:39 Hgb 13.60 g/dL (11.27-16.99) 03/20/24 17:39 Hct 41.6 % (36-47) 03/20/24 17:39 MCV 86.1 fl (85-98) 03/20/24 17:39 MCH 28.2 pg (27-33) 03/20/24 17:39 MCHC 32.7 g/dL (30-55) 03/20/24 17:39 RDW 14.6 % (12.1-15.1) 03/20/24 17:39 Plt Count 229 10^3/cmm (157-399) 03/20/24 17:39 MPV 10.9 fL (7.4-10.4) H 03/20/24 17:39 Neut % (Auto) 80.9 % 03/20/24 17:39 Lymph % (Auto) 11.2 % 03/20/24 17:39 [place] % (Auto) 6.8 % 03/20/24 17:39 Eos % (Auto) 0.1 % 03/20/24 17:39 Baso % (Auto) 0.3 % 03/20/24 17:39 Neut # (Auto) 13.67 10^3/uL (1.8-7.7) H 03/20/24 17:39 Lymph # (Auto) 1.9 10^3/uL (0.8-4.8) 03/20/24 17:39 [place] # (Auto) 1.2 10^3/uL (0.2-0.9) H 03/20/24 17:39 Eos # (Auto) 0.0 10^3/uL (0.0-0.8) 03/20/24 17:39 Baso # (Auto) 0.1 10^3/uL (0.0-0.1) 03/20/24 17:39 Nucleated RBC % (auto) 0 % 03/20/24 17:39 Nucleated RBCs # 0.0 /100WBC 03/20/24 17:39 Sodium 135 mmol/L (136-145) L 03/20/24 17:39 Potassium 3.6 mmol/L (3.5-5.1) 03/20/24 17:39 Chloride 96 mmol/L (98-107) L 03/20/24 17:39 Carbon Dioxide 23 mmol/L (22-29) 03/20/24 17:39 Anion Gap 19.6 (5-19) H 03/20/24 17:39 BUN 10 mg/dL (8-23) 03/20/24 17:39 Creatinine 0.5 mg/dL (0.5-0.9) 03/20/24 17:39 GFR Calculation 122.7 mL/min (90-130) 03/20/24 17:39 Glucose 109 mg/dL (65-115) 03/20/24 17:39 Calculated Osmolality 280 mOsm/kg (285-295) L 03/20/24 17:39 Calcium 9.5 mg/dL (8.5-10.5) 03/20/24 17:39 Total Bilirubin 0.9 mg/dL (0.15-1.2) 03/20/24 17:39 AST 17 U/L (0-32) 03/20/24 17:39 ALT 19 U/L (0-33) 03/20/24 17:39 Alkaline Phosphatase 76 U/L (35-105) 03/20/24 17:39 Troponin T Baseline 9 ng/L (0-10) 03/20/24 17:39 NT-Pro-B Natriuret Pep 2517 pg/mL (0-125) H 03/20/24 17:39 Total Protein 6.8 g/dL (6.6-8.7) 03/20/24 17:39 Albumin 3.8 g/dL (3.5-5.2) 03/20/24 17:39 Globulin 3.0 g/dL (1.3-4.6) 03/20/24 17:39 Urine Color Dark yellow (Yellow) A 03/20/24 18:01 Urine Appearance Clear (CLEAR) 03/20/24 18:01 Urine pH 5.5 (5-7) 03/20/24 18:01 Ur Specific [place] 1.028 (1.005-1.030) 03/20/24 18:01 Urine Protein 2+ (Negative) A 03/20/24 18:01 Urine Glucose (UA) Negative (Normal) 03/20/24 18:01 Urine Ketones 4+ (Negative) 03/20/24 18:01 Urine Blood Negative (Negative) 03/20/24 18:01 Urine Nitrate Negative (Negative) 03/20/24 18:01 Urine Bilirubin Negative (Negative) 03/20/24 18:01 Urine Urobilinogen 1.0 mg/dL (Negative) 03/20/24 18:01 Ur Leukocyte Esterase Negative (Negative) 03/20/24 18:01 Urine RBC 0-2 /hpf (0-2) 03/20/24 18:01 Urine WBC 0-5 /hpf (0-5) 03/20/24 18:01 Ur Squamous Epith Cells 0-5 /hpf (0-5) 03/20/24 18:01 Amorphous Sediment Not Reportable 03/20/24 18:01 Urine Bacteria None seen /hpf (NONE) 03/20/24 18:01 Hyaline Casts 3.30 /lpf 03/20/24 18:01 Coronavirus (PCR) Negative (Negative) 03/20/24 17:39 Influenza A (PCR) Negative (Negative) 03/20/24 17:39 Influenza Type B (PCR) Negative (Negative) 03/20/24 17:39 RSV (PCR) Negative (Negative) 03/20/24 17:39 All radiology interpretation(s) finalized by discharge EKG Data EKG 1: I personally reviewed and interpreted this EKG as follows: EKG Interpretation Date: 03/20/24 EKG interpretation time: 18:04 Prior EKG tracings: available for review Interpretation: Normal sinus rhythm. Rate 79. No acute ST segment changes. No significant change from prior on 08/27/2022. Reviewed with physician. Discharge Plan Discharge Patient Disposition: Home Clinical Impression: Valvular heart disease, Mild reactive airways disease Condition: Stable Prescriptions: New prednisone 20 mg tablet 40 mg PO ONCE 5 Days Qty: 10 0RF albuterol sulfate 90 mcg/actuation HFA aerosol inhaler 1 inh inhalation Q6H PRN (Reason: shortness of breath or wheezing) Qty: 6.7 0RF azithromycin 500 mg tablet 500 mg PO DAILY 5 Days Qty: 5 0RF No Action omega-3 fatty acids [Fish Oil Concentrate] 1,000 mg capsule 1,000 mg PO QDAY multivitamin with iron Tablet 1 tab PO QDAY magnesium oxide 140 mg capsule 140 mg PO QDAY vitamin B complex [B Complex-Vitamin B12] Tablet 1 tab PO QDAY nystatin 100,000 unit/gram ointment 1 applic topical BID Qty: 30 0RF epinephrine [EpiPen 2-Taj] 0.3 mg/0.3 mL auto-injector 0.3 mg IM Q4H PRN (Reason: anaphylaxis) Qty: 2 0RF lidocaine-epinephrine 2 %-1:100,000 solution 1 ml SUBCUT ONCE Qty: 1 0RF aspirin [Adult Aspirin Regimen] 81 mg tablet,delayed release (DR/EC) 162 mg PO QDAY red yeast rice 600 mg capsule 600 mg PO DAILY Rx Instructions: give with meal/snack Asmanex HFA 100 mcg/actuation HFA aerosol inhaler 1 inh inhalation BID Qty: 13 0RF pantoprazole 20 mg tablet,delayed release (DR/EC) See Rx Instructions .ROUTE .COMPLEX Qty: 90 0RF Dose Instruction: Take 1 tablet by mouth once daily Rx Instructions: Take 1 tablet by mouth once daily buspirone 10 mg tablet See Rx Instructions .ROUTE .COMPLEX Qty: 180 0RF Dose Instruction: Take 1 tablet by mouth twice daily Rx Instructions: Take 1 tablet by mouth twice daily fluoxetine 20 mg tablet See Rx Instructions .ROUTE .COMPLEX Qty: 180 0RF Dose Instruction: Take 2 tablets by mouth once daily Rx Instructions: Take 2 tablets by mouth once daily amlodipine 10 mg tablet See Rx Instructions .ROUTE .COMPLEX Qty: 90 0RF Dose Instruction: Take 1 tablet by mouth once daily Rx Instructions: Take 1 tablet by mouth once daily levothyroxine 50 mcg tablet See Rx Instructions .ROUTE .COMPLEX Qty: 180 0RF Dose Instruction: Take 1 tablet by mouth once daily Rx Instructions: Take 1 tablet by mouth once daily erythromycin 5 mg/gram (0.5 %) ointment 1 applic ophthalmic (eye) DAILY Qty: 3.5 0RF metoprolol tartrate 75 mg tablet See Rx Instructions .ROUTE .COMPLEX Qty: 180 0RF Dose Instruction: Take 1 tablet by mouth twice daily Rx Instructions: Take 1 tablet by mouth twice daily montelukast 10 mg tablet See Rx Instructions .ROUTE .COMPLEX Qty: 90 0RF Dose Instruction: Take 1 tablet by mouth once daily Rx Instructions: Take 1 tablet by mouth once daily Discharge Orders: Discharge ED (Routine); Ordered 03/20/24 Ordered By: Bg Escalona Referrals: Ana Laura Carrington FNP [Primary Care Provider] - Patient Instructions: Aortic Stenosis (ED), Reactive Airways Disease (ED) Activity Restrictions/Additional Instructions: Inhaler as needed. Prednisone as prescribed. Take Z-Taj. Please keep follow-up tomorrow with cardiology. Please return with severe shortness of breath, chest pain, or other concerns that you have. Coding Level of Care Code ED Settlement Technician for Connor Carcamo
--- NOTE | 2024-03-20 17:52 | ECG_ITS ---
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 Measurements Intervals [place] Rate: 79 P: 53 IN: 163 QRS: 29 QRSD: 102 T: 57 QT: 392 QTc: 452 Interpretive Statements SINUS RHYTHM Compared to ECG 08/27/2022 20:20:55 No significant changes Electronically Signed On 03-21-2024 11:11:31 ADJUTANT GENERAL by Judson Brand M.D. [id number]
[2024-03-20 17:53] LABS: Basophils # 0.1 10^3/uL (0.0-0.1); Basophils % 0.3 %; Eosinophils % 0.1 %; Hematocrit 41.6 % (36-47); Lymphocytes # 1.9 10^3/uL (0.8-4.8); Lymphocytes % 11.2 %; Mean Corpuscular HGB Conc 32.7 g/dL (30-55); Mean Corpuscular Hemoglobin 28.2 pg (27-33); Mean Corpuscular Volume 86.1 fl (85-98); Mean Platelet Volume 10.9 fL (7.4-10.4); Monocytes # 1.2 10^3/uL (0.2-0.9); Monocytes % 6.8 %; Neutrophils # 13.67 10^3/uL (1.8-7.7); Neutrophils % 80.9 %; Nucleated Red Blood Cells % 0 %; Platelet Count 229 10^3/cmm (157-399); Red Blood Count 4.83 10^6/uL (3.85-5.65); Red Cell Distribution Width 14.6 % (12.1-15.1)
[2024-03-20 18:14] LABS: Bilirubin Urine Negative (Negative); Blood Urine Negative (Negative); Glucose Urine UA Negative (Normal); Ketones Urine 4+ (Negative); Leukocyte Esterase Urine Negative (Negative); Nitrate Urine Negative (Negative); Protein Urine 2+ (Negative); Specific Gravity, Urine 1.028 (1.005-1.030); Urine Appearance Clear (CLEAR); Urine Color Dark Yellow (Yellow); pH Urine 5.5 (5-7)
[2024-03-20 18:14] LABS: Troponin(5th) Baseline 9 ng/L (0-10)
[2024-03-20 18:16] LABS: Add Urine Microscopic? YES; Bacteria Urine None Seen /hpf; RBC Urine 0-2 /hpf (0-2); Squamous Epithelial Cell Urine 0-5 /hpf (0-5); WBC Urine 0-5 /hpf (0-5)
[2024-03-20 18:23] LABS: Alanine Aminotransferase 19 U/L (0-33); Albumin Level 3.8 g/dL (3.5-5.2); Alkaline Phosphatase 76 U/L (35-105); Anion Gap 19.6 (5-19); Aspartate Amino Transferase 17 U/L (0-32); Blood Urea Nitrogen 10 mg/dL (8-23); Calcium 9.5 mg/dL (8.5-10.5); Carbon Dioxide 23 mmol/L (22-29); Chloride 96 mmol/L (98-107); Creatinine Clr Calc Pharmacy 78.2051; Glomerular Filtration Rate 122.7 mL/min (90-130); Glucose 109 mg/dL (65-115); NT Pro B Type Natriuretic Pept 2517 pg/mL (0-125); Osmolality Calculated 280 mOsm/kg (285-295); Potassium 3.6 mmol/L (3.5-5.1); Sodium 135 mmol/L (136-145); Total Bilirubin 0.9 mg/dL (0.15-1.2); Total Protein 6.8 g/dL (6.6-8.7)
[2024-03-20 18:58] LABS: Covid PCR NEGATIVE (Negative); Influenza A NEGATIVE (Negative); Influenza B NEGATIVE (Negative); Respiratory Syncytial Virus Ce NEGATIVE (Negative)
[2024-03-20] MEDS: ipratropium-albuterol 3 mL Neb INHALATION (19:23)
[2024-03-20] MEDS: FUROsemide 10 mg/mL SDV 10mL 60 MG IVP (19:33)
--- NOTE | 2024-03-20 19:41 | CTR_ITS ---
PROCEDURE INFORMATION: Exam: CTA Chest With Contrast Exam date and time: 03/20/2024 8:44 PM Age: 68 years old Clinical indication: Shortness of breath; Additional info: SOB, opacities on cxr, elevated wbc TECHNIQUE: Imaging protocol: Computed tomographic angiography of the chest with contrast. Exam focused on the arteries. 3D rendering (Not supervised by radiologist): MIP and/or 3D reconstructed images were created by the technologist. Radiation optimization: All CT scans at this facility use at least one of these dose optimization techniques: automated exposure control; mA and/or kV adjustment per patient size (includes targeted exams where dose is matched to clinical indication); or iterative reconstruction. Contrast material: OMNIPAQUE 350; Contrast volume: 100 ml; Contrast route: INTRAVENOUS (IV); COMPARISON: CR (CHEST, ) 03/20/2024 6:04 PM RADIATION DOSE METRICS: Total DLP (mGy-cm): 498.06 FINDINGS: Pulmonary arteries: No pulmonary emboli. Great vessels off aortic arch: Severe stenosis at the origin of the right brachiocephalic artery secondary to calcified plaque. Aorta: Unremarkable. No aortic aneurysm. No aortic dissection. Trachea: Geographic regions hypoattenuation consistent with air trapping possibly secondary to small airways disease. Lungs: No focal consolidations. Pleural spaces: Unremarkable. No pneumothorax. No pleural effusion. Heart: Mitral annular calcifications. Coronary arteries: Coronary arterial atherosclerotic calcifications are present. Lymph nodes: Unremarkable. No enlarged lymph nodes. Liver: The liver is diffusely low in attenuation consistent with hepatic steatosis. Bones/joints: Unremarkable. No acute fracture. Soft tissues: Unremarkable. CT/CT angio chest PE protcl [id number] IMPRESSION: 1. No pulmonary emboli. 2. Geographic regions hypoattenuation consistent with air trapping possibly secondary to small airways disease. 3. No focal consolidations.
[2024-03-20] MEDS: iohexol 350 mg/mL 500 mL Btl (per mL) IV (20:47)
== END 2024-03-20 22:18 | disposition home or self-care (01) ==
PROVIDERS: Emergency Provider Physician Assistant; PCP Registered Nurse
DX: I38 Endocarditis, valve unspecified (principal); J45.909 Unspecified asthma, uncomplicated; Z11.52 Encounter for screening for COVID-19; I10 Essential (primary) hypertension
CPT/HCPCS: 36415; 71045; 71275; 80053; 81001; 83880; 84484; 85025; 87637; 93005; 94640; 96374; 99285; J1940

== ENCOUNTER 2024-04-02 16:02 | Outpatient (CLI) | payer MEDICARE, SELFPAY ==
[2024-04-02 16:51] LABS: Basophils # 0.1 10^3/uL (0.0-0.1); Basophils % 0.6 %; Eosinophils # 0.1 10^3/uL (0.0-0.8); Eosinophils % 1.1 %; Hematocrit 46.8 % (36-47); Lymphocytes % 27.2 %; Mean Corpuscular HGB Conc 31.8 g/dL (30-55); Mean Corpuscular Hemoglobin 27.6 pg (27-33); Mean Corpuscular Volume 86.7 fl (85-98); Mean Platelet Volume 10.7 fL (7.4-10.4); Monocytes # 0.9 10^3/uL (0.2-0.9); Monocytes % 8.1 %; Neutrophils # 6.94 10^3/uL (1.8-7.7); Neutrophils % 62.1 %; Nucleated Red Blood Cells % 0 %; Platelet Count 252 10^3/cmm (157-399); White Blood Count 11.17 10^3/uL (3.29-11.43)
[2024-04-02 17:20] LABS: Anion Gap 16.9 (5-19); Blood Urea Nitrogen 5 mg/dL (8-23); Calcium 9.6 mg/dL (8.5-10.5); Carbon Dioxide 25 mmol/L (22-29); Chloride 102 mmol/L (98-107); Glomerular Filtration Rate 99.4 mL/min (90-130); Glucose 105 mg/dL (65-115); NT Pro B Type Natriuretic Pept 1434 pg/mL (0-125); Osmolality Calculated 288 mOsm/kg (285-295); Potassium 3.9 mmol/L (3.5-5.1); Sodium 140 mmol/L (136-145)
== END 2024-04-02 16:03 | disposition home or self-care (01) ==
PROVIDERS: Family Provider Registered Nurse; PCP Registered Nurse; Visit Provider Registered Nurse
DX: J18.9 Pneumonia, unspecified organism (principal); R06.02 Shortness of breath
CPT/HCPCS: 36415; 80048; 83880; 85025

== ENCOUNTER 2024-05-12 04:52 | Emergency (ER) | payer MEDICARE, SELFPAY ==
[2024-05-12] VITALS (10 sets, daily range): BP systolic 125–159; BP diastolic 66–85; PULSE 51–63; RESP 10–20; TEMP 36.7; O2SAT 88–98; BMI 44.4
--- NOTE | 2024-05-12 05:00 | XRR_ITS ---
PROCEDURE INFORMATION: Exam: XR Chest Exam date and time: 05/12/2024 5:03 AM Age: 68 years old Clinical indication: Chest pressure; C/O chest pain; Additional info: Cp TECHNIQUE: Imaging protocol: Radiologic exam of the chest. Views: 1 view. COMPARISON: CT angio chest PE protcl [id number] 03/20/2024 8:44 PM FINDINGS: Lungs: Unremarkable. No consolidation. Pleural spaces: Unremarkable. No pleural effusion. No pneumothorax. Heart/Mediastinum: See Vasculature finding. Vasculature: Borderline cardiomegaly and uncoiling of the thoracic aorta accentuated by the AP positioning. Bones/joints: Unremarkable. XR/XR chest 1V portable [id number] IMPRESSION: No acute cardiopulmonary disease.
--- NOTE | 2024-05-12 05:09 | W.ED.CHESTPA ---
HPI - Chest Pain General: Chief Complaint: Chest Pain Stated Complaint: SoB heaviness in chest, heart surg scheduled 3days Time Seen by Provider: 05/12/24 05:00 Source: patient Mode of arrival: ambulatory Limitations: no limitations History of Present Illness: 68-year-old female states that she has been having some pain in her right shoulder has been going on for 2 days. She states she recently had a stent placed at [facility] 2 weeks ago she scheduled for TAVR as she has aortic stenosis on Monday at [facility]. She states that she felt like she may have strained a muscle in her shoulder as it hurts worse with movement and palpation but she is concerned that maybe her heart as well. Rates her pain a 1 out of 10 currently denies any shortness of breath Associated symptoms: Deny abdominal pain, dyspnea, fever(s), nausea or vomiting Related Data Home Medications ?Medication ?Instructions ?Recorded ?Confirmed aspirin 81 mg tablet,delayed 162 mg PO QDAY 02/19/24 05/12/24 release (Adult Aspirin Regimen) clopidogrel 75 mg tablet 75 mg PO DAILY 05/01/24 05/12/24 amlodipine 10 mg tablet 10 mg PO DAILY 05/12/24 05/12/24 buspirone 10 mg tablet 10 mg PO BID 05/12/24 05/12/24 fluoxetine 20 mg tablet 40 mg PO DAILY 05/12/24 05/12/24 levothyroxine 50 mcg tablet 50 mcg PO DAILY 05/12/24 05/12/24 metoprolol tartrate 75 mg tablet 75 mg PO BID 05/12/24 05/12/24 montelukast 10 mg tablet 10 mg PO DAILY 05/12/24 05/12/24 pantoprazole 20 mg tablet,delayed 20 mg PO DAILY 05/12/24 05/12/24 release Previous Rx's ?Medication ?Instructions ?Recorded albuterol sulfate 90 mcg/actuation 1 inh inhalation Q6H PRN shortness 03/20/24 aerosol inhaler of breath or wheezing #6.7 grams albuterol sulfate 2.5 mg/3 mL 2.5 mg (3 mL) inhalation Q4H PRN 04/03/24 (0.083 %) solution for nebulization bronchospasm 10 days #90 mL furosemide 20 mg tablet (Lasix) 20 mg PO DAILY 90 days #90 tabs 05/01/24 potassium chloride 10 mEq 10 meq PO DAILY 90 days #90 tabs 05/01/24 tablet,extended release(part/cryst) (Klor-Con M) Allergies Allergy/AdvReac Type Severity Reaction Status Date / Time clindamycin (From Cleocin) Allergy Unknown unknown Verified 05/01/24 09:58 ezetimibe (From Zetia) Allergy Unknown unknown Verified 05/01/24 09:58 gemfibrozil (From Lopid) Allergy Unknown unknown Verified 05/01/24 09:58 Penicillins Allergy Unknown Unknown Verified 05/01/24 09:58 Sulfa (Sulfonamide Allergy Unknown unknown Verified 05/01/24 09:58 Antibiotics) Alpha-Gal Allergy Unknown Verified 05/01/24 09:58 (Egwcjjfhz-Zpibq-1,3-Gala Review of Systems Const: Denies: fever(s), chills, body aches or change in appetite ENMT: Denies: throat pain or dental pain Card: Reports: chest pain Resp: Denies: dyspnea GI: Denies: abdominal pain, nausea, vomiting or diarrhea Musc: Denies: neck pain or back pain Skin/Breast: Denies: rash Neuro: Denies: headache(s) PFSH ED PFSH: Medical History Family history of stroke or transient ischemic attack in mother Mother in 40's with stroke Systolic murmur Anxiety Skin lesion Disorder of mitral valve Seasonal allergies Depression Dyslipidemia Vitamin D deficiency Essential hypertension Family History Other Cancer Heart disease Hypertension Stroke Social History Smoking and tobacco/nicotine status: never used tobacco/nicotine Second hand smoke exposure: No Alcohol intake: never Substance/Drug Use: never Sexually active: Yes Do you think of yourself as: Straight/Heterosexual Current gender identity: Female Physical Exam Const: COMMON NORMALS: no acute distress, patient oriented x3 and healthy appearing HENMT: COMMON NORMALS: normocephalic and atraumatic HEAD & SCALP: normocephalic and atraumatic Eye: COMMON NORMALS: conjunctivae normal CONJUNCTIVA: Yes conjunctivae normal Neck/C-Spine: COMMON NORMALS: full ROM and supple Chest: COMMONS NORMALS: normal inspection of the chest Resp: COMMON NORMALS: normal respiratory effort, No retractions, No use of accessory muscles and clear to auscultation bilaterally AUSCULTATION: clear to auscultation bilaterally Cardio: COMMON NORMALS: regular rate and regular rhythm RATE: regular rate RHYTHM: regular rhythm HEART SOUNDS: Murmur heart sound present systolic GI: COMMON NORMALS: Normal to inspection, nondistended, normoactive bowel sounds present, Soft to palpation, non-tender and no masses PALPATION: Yes Soft to palpation Extremity: COMMON NORMALS: normal to inspection and full ROM Neuro: COMMON NORMALS: patient oriented x3, moves all extremities and no focal motor deficits Psych: COMMON NORMALS: mental status grossly normal, Normal thought process present and cooperative THOUGHT PROCESS: Normal thought process present Skin: COMMON NORMALS: no rashes or lesions noted and no wounds GENERAL SKIN EXAM: no rashes or lesions noted Course Vital Signs: Vital signs: Vital Signs Temperature 98.0 F 05/12/24 04:54 Pulse Rate 51 L 05/12/24 07:30 Respiratory Rate 13 05/12/24 07:30 Blood Pressure 125/67 05/12/24 07:00 Pulse Oximetry 91 05/12/24 07:30 Oxygen Delivery Me thod Room Air 05/12/24 05:46 MDM - Chest Pain Medical Decision Making Patient presents for chest pain is atypical in nature she been well-appearing here troponins are negative no signs of ACS she stable for discharge 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 She is return if worsening Medical Records I reviewed the patient's medical records. Lab Data I reviewed the patient's lab results. 05/12/24 05:04 05/12/24 05:04 Radiology Impressions Chest X-Ray 05/12/24 05:00 IMPRESSION: No acute cardiopulmonary disease. Laboratory Results WBC 7.21 10^3/uL (3.29-11.43) 05/12/24 05:04 RBC 5.21 10^6/uL (3.85-5.65) 05/12/24 05:04 Hgb 14.70 g/dL (11.27-16.99) 05/12/24 05:04 Hct 46.1 % (36-47) 05/12/24 05:04 MCV 88.5 fl (85-98) 05/12/24 05:04 MCH 28.2 pg (27-33) 05/12/24 05:04 MCHC 31.9 g/dL (30-55) 05/12/24 05:04 RDW 15.4 % (12.1-15.1) H 05/12/24 05:04 Plt Count 201 10^3/cmm (157-399) 05/12/24 05:04 MPV 11.3 fL (7.4-10.4) H 05/12/24 05:04 Neut % (Auto) 43.8 % 05/12/24 05:04 Lymph % (Auto) 43.8 % 05/12/24 05:04 [place] % (Auto) 9.2 % 05/12/24 05:04 Eos % (Auto) 1.9 % 05/12/24 05:04 Baso % (Auto) 1.0 % 05/12/24 05:04 Neut # (Auto) 3.16 10^3/uL (1.8-7.7) 05/12/24 05:04 Lymph # (Auto) 3.2 10^3/uL (0.8-4.8) 05/12/24 05:04 [place] # (Auto) 0.7 10^3/uL (0.2-0.9) 05/12/24 05:04 Eos # (Auto) 0.1 10^3/uL (0.0-0.8) 05/12/24 05:04 Baso # (Auto) 0.1 10^3/uL (0.0-0.1) 05/12/24 05:04 Nucleated RBC % (auto) 0 % 05/12/24 05:04 Nucleated RBCs # 0.0 /100WBC 05/12/24 05:04 PT 13.00 SECONDS (12.1-14.9) 05/12/24 05:04 INR 0.92 (0.8-1.2) 05/12/24 05:04 Sodium 141 mmol/L (136-145) 05/12/24 05:04 Potassium 3.8 mmol/L (3.5-5.1) 05/12/24 05:04 Chloride 104 mmol/L (98-107) 05/12/24 05:04 Carbon Dioxide 25 mmol/L (22-29) 05/12/24 05:04 Anion Gap 15.8 (5-19) 05/12/24 05:04 BUN 12 mg/dL (8-23) 05/12/24 05:04 Creatinine 0.7 mg/dL (0.5-0.9) 05/12/24 05:04 GFR Calculation 83.2 mL/min (90-130) L 05/12/24 05:04 Glucose 102 mg/dL (65-115) 05/12/24 05:04 Calculated Osmolality 292 mOsm/kg (285-295) 05/12/24 05:04 Calcium 9.5 mg/dL (8.5-10.5) 05/12/24 05:04 Magnesium 1.8 mg/dL (1.7-2.3) 05/12/24 05:04 Total Bilirubin 0.5 mg/dL (0.15-1.2) 05/12/24 05:04 AST 27 U/L (0-32) 05/12/24 05:04 ALT 31 U/L (0-33) 05/12/24 05:04 Alkaline Phosphatase 75 U/L (35-105) 05/12/24 05:04 Troponin T Baseline 8 ng/L (0-10) 05/12/24 05:04 Troponin T 120 Minute 6.00 ng/L (0-10) 05/12/24 07:06 Delta Troponin T -2.00 ABS# (0-10) L 05/12/24 07:06 Total Protein 7.0 g/dL (6.6-8.7) 05/12/24 05:04 Albumin 4.1 g/dL (3.5-5.2) 05/12/24 05:04 Globulin 2.9 g/dL (1.3-4.6) 05/12/24 05:04 Lipase 46 U/L (13-60) 05/12/24 05:04 All radiology interpretation(s) finalized by discharge EKG Data EKG 1: I personally reviewed and interpreted this EKG as follows: EKG interpretation date: 05/12/24 EKG interpretation time: 04:58 Interpretation: sinus rudy hr [address] elevation qrs 106 qtc 475 Discharge Plan Discharge Patient Disposition: Home Clinical Impression: Atypical chest pain Condition: Stable Prescriptions: No Action aspirin [Adult Aspirin Regimen] 81 mg tablet,delayed release (DR/EC) 162 mg PO QDAY clopidogrel 75 mg tablet 75 mg PO DAILY furosemide [Lasix] 20 mg tablet 20 mg PO DAILY 90 Days Qty: 90 0RF potassium chloride [Klor-Con M10] 10 mEq tablet,ER particles/crystals 10 meq PO DAILY 90 Days Qty: 90 0RF albuterol sulfate 2.5 mg /3 mL (0.083 %) solution for nebulization 2.5 mg inhalation Q4H PRN (Reason: bronchospasm) 10 Days Qty: 90 0RF albuterol sulfate 90 mcg/actuation HFA aerosol inhaler 1 inh inhalation Q6H PRN (Reason: shortness of breath or wheezing) Qty: 6.7 0RF pantoprazole 20 mg tablet,delayed release (DR/EC) 20 mg PO DAILY Rx Instructions: Take 1 tablet by mouth once daily amlodipine 10 mg tablet 10 mg PO DAILY Rx Instructions: Take 1 tablet by mouth once daily levothyroxine 50 mcg tablet 50 mcg PO DAILY Rx Instructions: Take 1 tablet by mouth once daily fluoxetine 20 mg tablet 40 mg PO DAILY Rx Instructions: Take 2 tablets by mouth once daily buspirone 10 mg tablet 10 mg PO BID Rx Instructions: Take 1 tablet by mouth twice daily montelukast 10 mg tablet 10 mg PO DAILY Rx Instructions: Take 1 tablet by mouth once daily metoprolol tartrate 75 mg tablet 75 mg PO BID Rx Instructions: Take 1 tablet by mouth twice daily Discharge Orders: Discharge ED (Routine); Ordered 05/12/24 Ordered By: Gavino Galindo Referrals: Ana Laura Carrington FNP [Primary Care Provider] - Discharge Diet: Advance as tolerated Discharge Activity: Resume usual activity Patient Instructions: Chest Pain (ED) Print Language: East Timorese Coding Level of Care Code ED Real Estate Officer for Connor Carcamo
[2024-05-12 05:16] LABS: Basophils # 0.1 10^3/uL (0.0-0.1); Eosinophils # 0.1 10^3/uL (0.0-0.8); Eosinophils % 1.9 %; Hematocrit 46.1 % (36-47); Lymphocytes # 3.2 10^3/uL (0.8-4.8); Lymphocytes % 43.8 %; Mean Corpuscular HGB Conc 31.9 g/dL (30-55); Mean Corpuscular Hemoglobin 28.2 pg (27-33); Mean Corpuscular Volume 88.5 fl (85-98); Mean Platelet Volume 11.3 fL (7.4-10.4); Monocytes # 0.7 10^3/uL (0.2-0.9); Monocytes % 9.2 %; Neutrophils # 3.16 10^3/uL (1.8-7.7); Neutrophils % 43.8 %; Nucleated Red Blood Cells % 0 %; Platelet Count 201 10^3/cmm (157-399); Red Blood Count 5.21 10^6/uL (3.85-5.65); Red Cell Distribution Width 15.4 % (12.1-15.1); White Blood Count 7.21 10^3/uL (3.29-11.43)
[2024-05-12 05:30] LABS: INR 0.92 (0.8-1.2)
[2024-05-12 05:35] LABS: Troponin(5th) Baseline 8 ng/L (0-10)
[2024-05-12 05:39] LABS: Alanine Aminotransferase 31 U/L (0-33); Albumin Level 4.1 g/dL (3.5-5.2); Alkaline Phosphatase 75 U/L (35-105); Anion Gap 15.8 (5-19); Aspartate Amino Transferase 27 U/L (0-32); Blood Urea Nitrogen 12 mg/dL (8-23); Calcium 9.5 mg/dL (8.5-10.5); Carbon Dioxide 25 mmol/L (22-29); Chloride 104 mmol/L (98-107); Creatinine Clr Calc Pharmacy 78.7313; Globulin 2.9 g/dL (1.3-4.6); Glomerular Filtration Rate 83.2 mL/min (90-130); Glucose 102 mg/dL (65-115); Lipase 46 U/L (13-60); Osmolality Calculated 292 mOsm/kg (285-295); Potassium 3.8 mmol/L (3.5-5.1); Sodium 141 mmol/L (136-145); Total Bilirubin 0.5 mg/dL (0.15-1.2)
[2024-05-12] MEDS: ondansetron 2 mg/ML SDV 2 mL 4 MG IVP (05:43)
[2024-05-12 05:44] LABS: Magnesium 1.8 mg/dL (1.7-2.3)
[2024-05-12] MEDS: morphine 4 mg/mL SDV 1 mL IVP (05:44)
--- NOTE | 2024-05-12 11:00 | ECG_ITS ---
[facility] Test Date: 2024-05-12 Pat Name: Frida Ghosh Department: Room: Gender: Female Manager It Training: : 1955 Requested By: Gavino Galindo Order Number: [id number] Leonie MD: Sudheer Contreras M.D. Measurements Intervals [place] Rate: 57 P: 84 [place]: 161 QRS: 62 QRSD: 106 T: 80 QT: 482 QTc: 470 Interpretive Statements SINUS BRADYCARDIA PROLONGED QT INTERVAL Compared to ECG 03/20/2024 17:52:56 Prolonged QT interval now present Sinus rhythm no longer present Electronically Signed On 05-12-2024 22:49:33 CDT by Sudheer Contreras M.D. [id number]
== END 2024-05-12 08:02 | disposition home or self-care (01) ==
PROVIDERS: Emergency Provider Emergency Medicine; PCP Registered Nurse
DX: R07.89 Other chest pain (principal); Z79.82 Long term (current) use of aspirin; E78.5 Hyperlipidemia, unspecified; I10 Essential (primary) hypertension
CPT/HCPCS: 36415; 71045; 80053; 83690; 83735; 84484; 85025; 85610; 93005; 96374; 96375; 99285; J2270; J2405

== ENCOUNTER 2024-07-12 01:32 | Emergency (ER) | payer MEDICARE, SELFPAY ==
[2024-07-12 01:38] VITALS: BP 161/68; PULSE 65; RESP 16; TEMP 36.6; O2SAT 96; BMI 41.7
--- NOTE | 2024-07-12 02:02 | ECG_ITS ---
[facility]: 2024-[facility]12 Pat Name: Frida Ghosh Department: Room: Gender: Female Sizer Machine: : 1955 Requested By: John Corrales Order Number: [id number] Hadley MD: Sudheer Contreras M.D. Measurements Intervals Veteran Rate: 65 P: 68 CO: 190 QRS: 259 QRSD: 147 T: 40 QT: 479 QTc: 498 Interpretive Statements ELECTRONIC VENTRICULAR PACEMAKER ABNORMAL RHYTHM ECG WARNING: DATA QUALITY MAY AFFECT INTERPRETATION Compared to ECG 05/12/2024 04:58:36 Sinus bradycardia no longer present Prolonged QT interval no longer present Electronically Signed On 07-12-2024 16:25:45 CDT by Sudheer Contreras M.D. [email or web address] ([id number]
[2024-07-12 03:17] LABS: Troponin(5th) Baseline 39 ng/L (0-10)
[2024-07-12 04:58] LABS: Troponin 5 2HR 33.06 ng/L (0-10)
[2024-07-12 05:05] LABS: Troponin 5 2HR Delta -5.94 ABS# (0-10)
--- NOTE | 2024-07-12 05:31 | XRR_ITS ---
PROCEDURE INFORMATION: Exam: XR Chest Exam date and time: 07/12/2024 5:54 AM Age: 68 years old Clinical indication: Pain; Chest pressure; Prior surgery; Surgery date: 6+ months; Surgery type: Tavr pacer; Additional info: Cp TECHNIQUE: Imaging protocol: Radiologic exam of the chest. Views: 1 view. COMPARISON: CR XR chest 1V portable [id number] 05/12/2024 5:03 AM FINDINGS: Tubes, catheters and devices: New left subclavian dual lead transvenous cardiac pacemaker in expected position. Lungs: Unremarkable. No consolidation. Pleural spaces: Unremarkable. No pleural effusion. No pneumothorax. Heart/Mediastinum: Unremarkable. No cardiomegaly. Bones/joints: Unremarkable. XR/XR chest 1V portable [id number] IMPRESSION: No acute cardiopulmonary process.
[2024-07-12 05:58] VITALS: BP 197/64; PULSE 70; RESP 20; O2SAT 97
[2024-07-12 06:17] LABS: Basophils # 0.1 10^3/uL (0.0-0.1); Basophils % 0.8 %; Eosinophils # 0.2 10^3/uL (0.0-0.8); Eosinophils % 1.9 %; Hematocrit 46.3 % (36-47); Lymphocytes % 22.6 %; Mean Corpuscular HGB Conc 31.7 g/dL (30-55); Mean Corpuscular Hemoglobin 28.4 pg (27-33); Mean Corpuscular Volume 89.4 fl (85-98); Monocytes # 0.8 10^3/uL (0.2-0.9); Monocytes % 8.5 %; Neutrophils # 5.85 10^3/uL (1.8-7.7); Neutrophils % 65.6 %; Nucleated Red Blood Cells % 0 %; Platelet Count 234 10^3/cmm (157-399); Red Blood Count 5.18 10^6/uL (3.85-5.65); Red Cell Distribution Width 13.8 % (12.1-15.1); White Blood Count 8.92 10^3/uL (3.29-11.43)
[2024-07-12 06:28] LABS: Alanine Aminotransferase 31 U/L (0-33); Albumin Level 3.8 g/dL (3.5-5.2); Alkaline Phosphatase 88 U/L (35-105); Anion Gap 16.9 (5-19); Aspartate Amino Transferase 24 U/L (0-32); Blood Urea Nitrogen 9 mg/dL (8-23); Calcium 9.5 mg/dL (8.5-10.5); Carbon Dioxide 24 mmol/L (22-29); Chloride 102 mmol/L (98-107); Creatinine Clr Calc Pharmacy 75.8918; Globulin 3.4 g/dL (1.3-4.6); Glomerular Filtration Rate 83.2 mL/min (90-130); Glucose 119 mg/dL (65-115); Lipase 33 U/L (13-60); Osmolality Calculated 288 mOsm/kg (285-295); Potassium 3.9 mmol/L (3.5-5.1); Sodium 139 mmol/L (136-145); Total Bilirubin 0.4 mg/dL (0.15-1.2); Total Protein 7.2 g/dL (6.6-8.7)
[2024-07-12 07:08] VITALS: BP 155/59; PULSE 66; O2SAT 94
--- NOTE | 2024-07-12 07:10 | ED_ITS ---
HPI - Chest Pain 2 General: Chief Complaint: Chest Pain Stated Complaint: CHEST PAIN Time Seen by Provider: 07/12/24 05:45 Source: patient Mode of arrival: ambulatory Limitations: no limitations History of Present Illness: 68-year-old female states she has been h aving intermittent chest pain since the TAVR in April she went to the bathroom and got a flushed feeling states she had some slight chest pains she denies any shortness of breath denies any fever denies any worse or improving factors. Associated symptoms: Deny abdominal pain, dyspnea, fever(s), nausea or vomiting Related Data Home Medications ?Medication ?Instructions ?Recorded ?Confirmed aspirin 81 mg tablet,delayed 162 mg PO QDAY 02/19/24 0 06/24/24 release (Adult Aspirin Regimen) clopidogrel 75 mg tablet 75 mg PO DAILY 05/01/2407/14 losartan 25 mg tablet mg PO 05/30/24 06/24/24 Previous Rx's ?Medication ?Instructions ?Recorded albuterol sulfate 90 mcg/actuation 1 inh inhalation Q6 H PRN shortness 03/20/24 aerosol inhaler of breath or wheezing #6.7 g shannon albuterol sulfate 2.5 mg/3 mL 2.5 mg (3 mL) inhalation Q4H PRN 04/03/24 (0.083 %) solution for nebulization bronchospasm 10 da ys #90 mL epinephrine 0.3 mg/0.3 mL 0.3 mg (0.3 mL) IM Q4H PRN 0 05/13/24 injection, auto-injector (EpiPen anaphylaxis #2 ea 2-Taj) levothyroxine 50 mcg tablet 50 mcg PO DAILY #90 tabs 0 05/14/24 metoprolol tartrate 75 mg tablet See Rx Instructions . Route 05/29/24 .COMPLEX #180 tabs montelukast 10 mg tablet See Rx Instructions .Route 0 05/29/24 .COMPLEX #90 tabs nystatin 100,000 unit/gram topical 1 applic topical BI D #30 grams 05/30/24 powder buspirone 10 mg tablet 10 mg PO BID #180 tabs 07/11 fluoxetine 20 mg tablet 40 mg (2 x 20 mg) PO DAILY # 90 tabs 07/11/24 pantoprazole 20 mg tablet,delayed 20 mg PO DAILY #90 t abs 07/11/24 release Allergies Allergy/AdvReac Type Severity Reaction Status Date / Time clindamycin (From Cleocin) Allergy Unknown unknown Verified 06/24/24 11:07 ezetimibe (From Zetia) Allergy Unknown unknown Verified 06/24/24 11:07 gemfibrozil (From Lopid) Allergy Unknown unknown Verified 06/24/24 11:07 Penicillins Allergy Unknown Unknown Verified 06/24/24 11:07 Sulfa (Sulfonamide Allergy Unknown unknown Verified 06/24/24 11:07 Antibiotics) Alpha-Gal Allergy Unknown Verified 06/24/24 11:07 (Vuegugyvm-Cubqx-9,3-Gala Review of Systems 2 Const: Denies: fever(s), chills, body aches or change in appetite Eyes: Denies: blurry vision ENMT: Denies: throat pain or dental pain Card: Reports: chest pain Resp: Denies: dyspnea GI: Denies: abdominal pain, nausea, vomiting or diarrhea Musc: Denies: neck pain or back pain Skin/Breast: Denies: rash Neuro: Denies: headache(s) PFSH ED 2 PFSH: Medical History Peripheral arterial disease Hx of cardiac pacemaker Helicomm 04/2024 by Millie Family history of stroke or transient ischemic attack in mother Mother in 40's with stroke Systolic murmur Anxiety Skin lesion Disorder of mitral valve Seasonal allergies Depression Dyslipidemia Vitamin D deficiency Essential hypertension Family History Other Cancer Heart disease Hypertension Stroke Social History Smoking and tobacco/nicotine status: never used tobacco/nicotine Second hand smoke exposure: No Alcohol intake: never Substance/Drug Use: never Sexually active: Yes Do you think of yourself as: Straight/Heterosexual Current gender identity: Female Physical Exam 2 Const: COMMON NORMALS: no acute distress, patient oriented x3 and healthy appearing HENMT: COMMON NORMALS: normocephalic and atraumatic HEAD & SCALP: n ormocephalic and atraumatic Eye: COMMON NORMALS: conjunctivae normal CONJUNCTIVA: Yes conjunctivae normal Neck/C-Spine: COMMON NORMALS: full ROM and supple Chest: COMMONS NORMALS: normal inspection of the chest Resp: COMMON NORMALS: normal respiratory effort, No retractions, No use of accessory muscles and clear to auscultation bilaterally AUSCULTATION: clear to auscultation bilaterally Cardio: COMMON NORMALS: regular rate, regular rhythm and No murmurs present (Cardio) RATE: regular rate RHYTHM: regular rhythm GI: COMMON NORMALS: Normal to inspection, nondistended, normoactive bowel sounds present, Soft to palpation, non-tender and no masses PALPATION: Yes Soft to palpation Extremity: COMMON NORMALS: normal to inspection and full ROM Neuro: COMMON NORMALS: patient oriented x3, moves all extremities and no focal motor deficits Psych: COMMON NORMALS: mental status grossly normal, Normal thought process present and cooperative THOUGHT PROCESS: Normal thought process present Skin: COMMON NORMALS: no rashes or lesions noted and no wounds GENERAL SKIN EXAM: no rashes or lesions noted Course 2 Vital Signs: Vital signs: Vital Signs Temperature 97.9 F 07/12/24 01:38 Pulse Rate 66 07/12/24 07:08 Respiratory Rate 20 H 07/12/24 05:58 Blood Pressure 155/59 07/12/24 07:08 Pulse Oximetry 94 07/12/24 07:08 Oxygen Delivery Me thod Room Air 07/12/24 07:08 MDM - Chest Pain Medical Decision Making Patient presents here with chest pains atypical in nature troponins here are negative she has no signs of ACS no signs of pulmonary embolism she stable for discharge follow-up PCP return if worsening. Medical Records I reviewed the patient's medical records. Lab Data I reviewed the patient's lab results. 07/12/24 02:46 07/12/24 04:31 Radiology Impressions Chest X-Ray 07/12/24 05:31 IMPRESSION: No acute cardiopulmonary process. Laboratory Results WBC 8.92 10^3/uL (3.29-11.43) 07/12/24 02:46 RBC 5.18 10^6/uL (3.85-5.65) 07/12/24 02:46 Hgb 14.70 g/dL (11.27-16.99) 07/12/24 02:46 Hct 46.3 % (36-47) 07/12/24 02:46 MCV 89.4 fl (85-98) 07/12/24 02:46 MCH 28.4 pg (27-33) 07/12/24 02:46 MCHC 31.7 g/dL (30-55) 07/12/24 02:46 RDW 13.8 % (12.1-15.1) 07/12/24 02:46 Plt Count 234 10^3/cmm (157-399) 07/12/24 02:46 MPV 11.0 fL (7.4-10.4) H 07/12/24 02:46 Neut % (Auto) 65.6 % 07/12/24 02:46 Lymph % (Auto) 22.6 % 07/12/24 02:46 [place] % (Auto) 8.5 % 07/12/24 02:46 Eos % (Auto) 1.9 % 07/12/24 02:46 Baso % (Auto) 0.8 % 07/12/24 02:46 Neut # (Auto) 5.85 10^3/uL (1.8-7.7) 07/12/24 02:46 Lymph # (Auto) 2.0 10^3/uL (0.8-4.8) 07/12/24 02:46 [place] # (Auto) 0.8 10^3/uL (0.2-0.9) 07/12/24 02:46 Eos # (Auto) 0.2 10^3/uL (0.0-0.8) 07/12/24 02:46 Baso # (Auto) 0.1 10^3/uL (0.0-0.1) 07/12/24 02:46 Nucleated RBC % (auto) 0 % 07/12/24 02:46 Nucleated RBCs # 0.0 /100WBC 07/12/24 02:46 Sodium 139 mmol/L (136-145) 07/12/24 04:31 Potassium 3.9 mmol/L (3.5-5.1) 07/12/24 04:31 Chloride 102 mmol/L (98-107) 07/12/24 04:31 Carbon Dioxide 24 mmol/L (22-29) 07/12/24 04:31 Anion Gap 16.9 (5-19) 07/12/24 04:31 BUN 9 mg/dL (8-23) 07/12/24 04:31 Creatinine 0.7 mg/dL (0.5-0.9) 07/12/24 04:31 GFR Calculation 83.2 mL/min (90-130) L 07/12/24 04:31 Glucose 119 mg/dL (65-115) H 07/12/24 04:31 Calculated Osmolality 288 mOsm/kg (285-295) 07/12/24 04:31 Calcium 9.5 mg/dL (8.5-10.5) 07/12/24 04:31 Total Bilirubin 0.4 mg/dL (0.15-1.2) 07/12/24 04:31 AST 24 U/L (0-32) 07/12/24 04:31 ALT 31 U/L (0-33) 07/12/24 04:31 Alkaline Phosphatase 88 U/L (35-105) 07/12/24 04:31 Troponin T Baseline 39 ng/L (0-10) H 07/12/24 02:46 Troponin T 120 Minute 33.06 ng/L (0-10) H 07/12/24 04:31 Delta Troponin T -5.94 ABS# (0-10) L 07/12/24 04:31 Total Protein 7.2 g/dL (6.6-8.7) 07/12/24 04:31 Albumin 3.8 g/dL (3.5-5.2) 07/12/24 04:31 Globulin 3.4 g/dL (1.3-4.6) 07/12/24 04:31 Lipase 33 U/L (13-60) 07/12/24 04:31 All radiology interpretation(s) finalized by discharge Discharge Plan Discharge Patient Disposition: Home Clinical Impression: Chest pain Condition: Stable Prescriptions: No Action aspirin [Adult Aspirin Regimen] 81 mg tablet,delayed release (DR/EC) 162 mg PO QDAY clopidogrel 75 mg tablet 75 mg PO DAILY losartan 25 mg tablet PO nystatin 100,000 unit/gram powder 1 applic topical BID Qty: 30 1RF albuterol sulfate 2.5 mg /3 mL (0.083 %) solution for nebulization 2.5 mg inhalation Q4H PRN (Reason: bronchospasm) 10 Days Qty: 90 0RF epinephrine [EpiPen 2-Taj] 0.3 mg/0.3 mL auto-injector 0.3 mg IM Q4H PRN (Reason: anaphylaxis) Qty: 2 0RF levothyroxine 50 mcg tablet 50 mcg PO DAILY Qty: 90 0RF Rx Instructions: Take 1 tablet by mouth once daily montelukast 10 mg tablet See Rx Instructions .ROUTE .COMPLEX Qty: 90 0RF Dose Instruction: Take 1 tablet by mouth once daily Rx Instructions: Take 1 tablet by mouth once daily metoprolol tartrate 75 mg tablet See Rx Instructions .ROUTE .COMPLEX Qty: 180 0RF Dose Instruction: Take 1 tablet by mouth twice daily Rx Instructions: Take 1 tablet by mouth twice daily fluoxetine 20 mg tablet 40 mg PO DAILY Qty: 90 0RF Rx Instructions: Take 2 tablets by mouth once daily pantoprazole 20 mg tablet,delayed release (DR/EC) 20 mg PO DAILY Qty: 90 0RF Rx Instructions: Take 1 tablet by mouth once daily buspirone 10 mg tablet 10 mg PO BID Qty: 180 0RF Rx Instructions: Take 1 tablet by mouth twice daily albuterol sulfate 90 mcg/actuation HFA aerosol inhaler 1 inh inhalation Q6H PRN (Reason: shortness of breath or wheezing) Qty: 6.7 0RF Discharge Orders: Discharge ED (Routine); Ordered 07/12/24 Ordered By: Gavino Galindo Referrals: Ana Laura Carrington FNP [Primary Care Provider, Family Practice] Discharge Diet: Advance as tolerated Discharge Activity: Resume usual activity Patient Instructions: Chest Pain (ED) Print Language: Citizen Of [place] Coding Level of Care Code ED Capacitor Pack Press Operator for Connor Carcamo
[2024-07-12 07:18] VITALS: BP 155/57; PULSE 60; O2SAT 92
== END 2024-07-12 07:21 | disposition home or self-care (01) ==
PROVIDERS: General Practice; Emergency Provider Emergency Medicine; PCP Registered Nurse
DX: R07.89 Other chest pain (principal); E78.5 Hyperlipidemia, unspecified; I10 Essential (primary) hypertension; Z82.49 Family history of ischemic heart disease and other diseases of the circulatory system; Z79.82 Long term (current) use of aspirin; Z79.02 Long term (current) use of antithrombotics/antiplatelets; Z79.899 Other long term (current) drug therapy; Z95.0 Presence of cardiac pacemaker
CPT/HCPCS: 36415; 71045; 80053; 83690; 84484; 85025; 93005; 99285

== ENCOUNTER → 2024-07-16 16:15 | Outpatient (BNVA) | payer MEDICARE, SELFPAY | PROVIDERS: PCP Registered Nurse; Visit Provider Family Medicine | DX: I10 Essential (primary) hypertension (principal) | CPT/HCPCS: 84439; 84443 ==

== ENCOUNTER 2024-07-17 13:34 | Outpatient (CLI) | payer MEDICARE, SELFPAY ==
--- NOTE | 2024-07-17 14:00 | CT_ITS ---
WS: [id number] CT HEAD NONCONTRAST HISTORY: R42 - Dizziness and giddiness TECHNIQUE: Contiguous axial imaging performed through the brain. Bone and soft tissue windows. Sagittal and coronal reformats reviewed. All CT scans at [facility] use at least one of these dose optimization techniques: automated exposure control; mA and/or kV adjustment per patient size (includes targeted exams where dose is matched to clinical indication); or iterative reconstruction. DLP: 1076.35 mGy.cm COMPARISON: 08/27/2022 No acute intracranial hemorrhage, midline shift or mass effect. Very minimal atrophy and small vessel disease. No prior infarct. Ventricles: Normal size with no hydrocephalus. Paranasal sinuses: As visualized are clear. Mastoid air cells: Well pneumatized. Calvarium and scalp: No skull fracture. There is an area of scalp thickening centered over the RIGHT frontal bone which was not present on the prior study. No soft tissue edema. CT/CT head wo con* [id number] IMPRESSION: 1. No acute intracranial hemorrhage or edema. 2. Focal area of scalp thickening over the RIGHT frontal bone. This may be the area of prior soft tissue trauma. There is an associated lucency in the fronta l bone but this was present on the prior study from 08/27/2022. This is not a fra cture.
== END 2024-07-17 13:35 | disposition home or self-care (01) ==
PROVIDERS: PCP Registered Nurse; Visit Provider Registered Nurse
DX: R42 Dizziness and giddiness (principal); S06.0XAA Concussion with loss of consciousness status unknown, initial encounter; R93.0 Abnormal findings on diagnostic imaging of skull and head, not elsewhere classified; X58.XXXA Exposure to other specified factors, initial encounter
CPT/HCPCS: 70450

== ENCOUNTER 2025-01-05 13:40 | Emergency (ER) | payer MEDICARE, SELFPAY ==
--- OUTSIDE RECORDS SUMMARY | 2025-01-05 13:45 | XMS_ITS | Encounter Summary ---
Author Organization [facility] Address [address] [place] [address] Care Team Providers Care Field Test Engineer Name Role Phone Ana Laura Carrington Primary Care Provider Encounter Details Date Type Department Care Team (Late st Contact Info) Description 03/11/1998 Outpatient Historical [facility]-Marcelo Bermudez [place] [address] [place] [id number] Jesus Scott MD [address] [place] [address] Abdominal pain, unspecified site (Primary Dx) Social History Tobacco Use Types Packs/Day Years Used Date Smoking Tobacco: Never Assessed Comments Unknown Sex and Gender Information Value Date Recorded Sex Assigned at Not on file Legal 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
--- OUTSIDE RECORDS SUMMARY | 2025-01-05 13:45 | XMS_ITS | Encounter Summary ---
Author Organization [facility] Address [address] [place] [address] Care Team Providers Care Quotation Clerk Name Role Phone Ana Laura Carrington Primary Care Provider Encounter Details Date Type Department Care Team (Latest Contact Info) Description 07/09/2001 Outpatient [facility] [address] [address] [place] [address] Tali Solis MD NO ADDRESS ON FILE LUMP OR MASS IN BREAST (Primary Dx) Social History Tobacco Use Types Packs/Day Years Used Date Smoking Tobacco: Never Assessed Comments Unknown Sex and Gender Information Value Date Recorded Sex Assigned at Not on file Legal Sex Female 4:02 AM CAREER DEVELOPMENT SPECIALIST Gender Identity Not on file Sexual Orientation Not on file documented as of this encounter Plan of Treatment Not on file documented as of this encounter Visit Diagnoses Diagnosis Lump or mass in breast- Primary documented in this encounter Care Teams Quotation Clerk Relationship Specialty Start Date End Date Ana Laura Carrington FNP [address] [place] [id number] PCP - General NURSE PRACTITIONER 03/22/18 documented as of this encounter
--- OUTSIDE RECORDS SUMMARY | 2025-01-05 13:45 | XMS_ITS | Encounter Summary ---
Author Organization [facility] Address [address] [place]: Epic Prelude ADT [place] [address] Care Team Providers Care All Around Presser Name Role Phone Ana Laura Carrington Primary Care Provider [phone] Encounter Details Date Type Department Care Team ([facility] st Contact Info) Description 07/09/2001 Outpatient Historical Rl Ríos DO [address] [place] [address] Social History Tobacco Use Types Packs/Day Years Used Date Smoking Tobacco: Never Assessed Comments Unknown Sex and Gender Information Value Date Recorded Sex Assigned at Not on file Legal Sex Female 4:02 AM LINK TRAINER TEACHER Gender Identity Not on file Sexual Orientation Not on file documented as of this encounter Plan of Treatment Not on file documented as of this encounter Visit Diagnoses Not on filedocumented in this encounter Care Teams All Around Presser Relationship Specialty Start Date End Date Ana Laura Carrington FNP [address] [place] [address] PCP - General NURSE PRACTITIONER 03/22/18 documented as of this encounter
--- OUTSIDE RECORDS SUMMARY | 2025-01-05 13:46 | XMS_ITS | Encounter Summary ---
Author Organization [facility] Address [address] [place] [address] Care Team Providers Care Professor Of Social Work Name Role Phone Ana Laura Carrington Primary Care Provider Encounter Details Date Type Department Care Team (Latest Contact Info) Description 12/09/1998 Outpatient Historical [facility] Cardiac Thoracic Vascular S[place] [address] [place] [address] Malachi Ford MD NO ADDRESS ON FILE Atherosclerosis of [place] arteries of the extremities with intermittent claudication (Primary Dx) Social History Tobacco Use Types Packs/Day Years Used Date Smoking Tobacco: Never Assessed Comments Unknown Sex and Gender Information Value Date Recorded Sex Assigned at Not on file Legal Sex Female 4:02 AM HEMATOLOGIST ONCOLOGIST Gender Identity Not on file Sexual Orientation Not on file documented as of this encounter Plan of Treatment Not on file documented as of this encounter Visit Diagnoses Diagnosis Atherosclerosis of [place] arteries of the extremities with intermittent claudication- Primary documented in this encounter Care Teams Professor Of Social Work Relationship Specialty Start Date End Date Ana Laura Carrington FNP [address] [place] [phone] PCP - General NURSE PRACTITIONER 03/22/18 documented as of this encounter
--- OUTSIDE RECORDS SUMMARY | 2025-01-05 13:46 | XMS_ITS | Encounter Summary ---
Author Organization [facility] Address [address] [place] [address] Care Team Providers Care Medical Assistant Secretary Name Role Phone Ana Laura Carrington Primary Care Provider [phone] Encounter Details Date Type Department Care Team (Latest Contact Info) Description 01/23/1998 Outpatient Historical [facility] [address] [facility] [address] [place] [address] Tali Solis MD NO ADDRESS ON FILE Lump or mass in breast (Primary Dx) Social History Tobacco Use Types Packs/Day Years Used Date Smoking Tobacco: Never Assessed Comments Unknown Sex and Gender Information Value Date Recorded Sex Assigned at Not on file Legal Sex Female 4:02 AM MINISTER HELPER Gender Identity Not on file Sexual Orientation Not on file documented as of this encounter Plan of Treatment Not on file documented as of this encounter Visit Diagnoses Diagnosis Lump or mass in breast- Primary documented in this encounter Care Teams Medical Assistant Secretary Relationship Specialty Start Date End Date Ana Laura Carrington FNP [address] [place] [phone] PCP - General NURSE PRACTITIONER 03/22/18 documented as of this encounter
--- OUTSIDE RECORDS SUMMARY | 2025-01-05 13:46 | XMS_ITS | Encounter Summary ---
Author Organization [facility] Address [address] [place] [address] Care Team Providers Care Credentials Specialist Name Role Phone Ana Laura Carrington Primary Care Provider Encounter Details Date Type Department Care Team (Late st Contact Info) Description 02/04/1998 Outpatient Historical [facility] [address] [place] [address] Misael Londono MD [address] [address] [place], [place] [address] Unspecified symptom associated with female genital organs (Primary Dx); Abdominal pain, unspecified site Social History Tobacco Use Types Packs/Day Years Used Date Smoking Tobacco: Never Assessed Comments Unknown Sex and Gender Information Value Date Recorded Sex Assigned at Not on file Legal Sex Female 4:02 AM PHILOSOPHY AND RELIGION INSTRUCTOR Gender Identity Not on file Sexual Orientation Not on file documented as of this encounter Plan of Treatment Not on file documented as of this encounter Visit Diagnoses Diagnosis Unspecified symptom associated with female genital organs- Primary Abdominal pain, unspecified site documented in this encounter Care Teams Credentials Specialist Relationship Specialty Start Date End Date Ana Laura Carrington FNP [address] [place] [address] PCP - General NURSE PRACTITIONER 03/22/18 documented as of this encounter
--- OUTSIDE RECORDS SUMMARY | 2025-01-05 13:46 | XMS_ITS | Encounter Summary ---
Author Organization [facility] Address [address] [place] [address] Care Team Providers Care Or First Assist Registered Nurse Name Role Phone Ana Laura Carrington Primary Care Provider [phone] Encounter Details Date Type Department Care Team (Latest Contact Info) Description 10/01/1998 Outpatient Historical [facility] [address] [facility] [address] [place] [address] Chucky Donahue MD NO ADDRESS ON FILE Other sign and symptom in breast (Primary Dx) Social History Tobacco Use Types Packs/Day Years Used Date Smoking Tobacco: Never Assessed Comments Unknown Sex and Gender Information Value Date Recorded Sex Assigned at Not on file Legal Sex Female 4:02 AM PIG MACHINE OPERATOR HELPER Gender Identity Not on file Sexual Orientation Not on file documented as of this encounter Plan of Treatment Not on file documented as of this encounter Visit Diagnoses Diagnosis Other sign and symptom in breast- Primary documented in this encounter Care Teams Or First Assist Registered Nurse Relationship Specialty Start Date End Date Ana Laura Carrington FNP [address] [place] [address] PCP - General NURSE PRACTITIONER 03/22/18 documented as of this encounter
--- OUTSIDE RECORDS SUMMARY | 2025-01-05 13:46 | XMS_ITS | Encounter Summary ---
Author Organization [facility] Address [address] [place] [address] Care Team Providers Care Flight Engineer Name Role Phone Ana Laura Carrington Primary Care Provider [phone] Encounter Details Date Type Department Care Team (Latest Contact Info) Description 01/13/1999 Outpatient Historical [facility] Cardiac Thoracic Vascular Surg [place] [address] [place] [address] Malachi Ford MD NO ADDRESS ON FILE Aortic atherosclerosis (Primary Dx) Social History Tobacco Use Types Packs/Day Years Used Date Smoking Tobacco: Never Assessed Comments Unknown Sex and Gender Information Value Date Recorded Sex Assigned at Not on file Legal Sex Female 4:02 AM SPORTS TEACHER Gender Identity Not on file Sexual Orientation Not on file documented as of this encounter Plan of Treatment Not on file documented as of this encounter Visit Diagnoses Diagnosis Aortic atherosclerosis- Primary Atherosclerosis of aorta documented in this encounter Care Teams Flight Engineer Relationship Specialty Start Date End Date Ana Laura Carrington FNP [address] [place] [address] PCP - General NURSE PRACTITIONER 03/22/18 documented as of this encounter
--- OUTSIDE RECORDS SUMMARY | 2025-01-05 13:47 | XMS_ITS | Clinical Summary ---
Author Organization [facility] Address [address] [place] [address] Phone Care Team Providers Care Cant Gang Sawyer Name Role Phone Ana Laura Carrington SHAGUFTA Primary Care Provider Allergies Active Allergy Reactions Criticality Noted Date Comments Penicillins Hives High 06/08/2018 Sulfa (Sulfonamide Antibiotics) Hives High 05/21 Medications omega-3 acid ethyl esters (OMACOR,LOVAZA) 1 gram Capsule Take 4 Grams by mouth daily. Active ergocalciferol, vitamin D2, (VITAMIN D ORAL) Take by mouth. Active multivit,calc,m ins/iron/folic (ONE DAILY WOMEN'S HEALTH ORAL) Take by mouth. Active turmeric 400 mg Capsule Take by mouth. Active mirtazapine (REMERON) 15 mg tablet Take 15 mg by mouth daily at bedtime. Active montelukast (SINGULAIR) 10 mg tablet Take 10 mg by mouth daily at bedtime. Active ferrous gluconate 324 mg (38 mg iron) tablet Take 324 mg by mouth. Active aspirin (MARIAM CHEWABLE) 81 mg Tablet, Chewable Take 81 mg by mouth daily. Active Cetirizine (ZyrTEC) 10 mg Capsule Take by mouth. Active loratadine 10 mg Capsule Take by mouth. Active hydroCHLOROthia zide (HYDRODIURIL) 12.5 mg tablet Take 12.5 mg by mouth daily. Active FLUoxetine (PROzac) 20 mg capsule Take 20 mg by mouth daily. Active nizatidine (AXID) 300 mg capsule Take 1 Capsule by mouth daily at bedtime. 3 12/15/2018 Active lisinopril (PRINIVIL) 40 mg tablet Take 1 Tablet by mouth daily. 1 12/06/2018 Active metoprolol tartrate (LOPRESSOR) 50 mg tablet Take 50 mg by mouth 2 times daily. 1 12/06/2018 Active atorvastatin (LIPITOR) 40 mg tablet Take 1 Tablet by mouth daily at bedtime. 3 12/06/2018 Active levothyroxine 50 mcg tablet Take 1 Tablet by mouth daily. 1 10/13/2018 Active Active Problems No known active problems Family History Medical History Relation Name Comments Heart Disease Brother Heart Disease Father Macular Degen Father Valvular Heart Disease Mother Blood Disorder Sister 1 factor 5 Cancer Sister 2 Relation Name Status Comments Brother Alive Daughter Alive Father Mother Sister 1 Alive Sister 2 Alive Son Alive Social History Tobacco Use Types Packs/Day Years Used Date Smoking Tobacco: Never Smokeless Tobacco: Never Tobacco Cessation:Counseling Given: Yes Alcohol Use Standard Drinks/Week Comments Never 0 (1 standard drink = 0.6 oz pur e alcohol) Comments No Sex and Gender Information Value Date Recorded Sex Assigned at Not on file Legal Sex Female 4:02 AM OLIVE PICKER Gender Identity Not on file Sexual Orientation Not on file Last Filed Vital Signs Vital Sign Reading Time Taken Comments Blood Pressure 142/79 01/08/2019 12:45 PM OLIVE PICKER Pulse 57 01/08/2019 12:45 PM OLIVE PICKER Temperature 36.4 C (97.6 F) 06/08/2018 6:50 PM CDT Respiratory Rate 18 06/08/2018 6:50 PM CDT Oxygen Saturation 98% 06/08/2018 6:50 PM CDT Inhaled Oxygen Concentration - - Weight 108.3 kg (238 lb 12.8 oz) 2018 12:45 PM OLIVE PICKER Height 165.1 cm (5' 5 ) 01/08/2019 12:4 5 PM OLIVE PICKER Body Mass Index 39.74 01/08/2019 12:45 PM OLIVE PICKER Plan of Treatment Health Maintenance Due Date Last Done Comments DTAP/TDAP/TD VACCINES (1 - Tdap) 07/29/1974 BREAST CANCER SCREENING 1995 COLORECTAL SCREENING 07/29/2000 Colorectal Cancer Screening 07/29/2000 FIT-DNA Q 3 years 07/29/2000 FIT/FOBT Q 1 year 07/29/2000 Flex Sig/CT Colonography Q 5 years 07/29/2000 PNEUMOCOCCAL VACCINE 50+ YEARS (1 of 1 - PCV) 07/30/19 ZOSTER VACCINE (1 of 2) 07/29/2005 OSTEOPOROSIS SCREENING 07/29/2020 INFLUENZA VACCINE (#1) 2024 RSV VACCINE (60+ or ) (1 - 1-dose 75+ series) 07/29/2030 Insurance [employer] PATHWAY(X) EXCHANGE Care Teams Cant Gang Sawyer Relationship Specialty Start Date End Date Ana Laura Carrington FNP [address] [place] [phone] PCP - General NURSE PRACTITIONER 03/22/18
--- OUTSIDE RECORDS SUMMARY | 2025-01-05 13:47 | XMS_ITS | Encounter Summary ---
Author Organization [facility] Address [address] [place] [address] Care Team Providers Care Reconciler Name Role Phone Ana Laura Carrington Primary Care Provider Encounter Details Date Type Department Care Team (Late st Contact Info) Description 03/22/2018 Ancillary Orders [facility] Admitting [address] [place] [address] Ana Laura Carrington FNP [address] [place] [address] Lower respiratory infection Social History Tobacco Use Types Packs/Day Years Used Date Smoking Tobacco: Never Assessed Comments Unknown Sex and Gender Information Value Date Recorded Sex Assigned at Not on file Legal Sex Female 4:02 AM MELT SUPERVISOR Gender Identity Not on file Sexual Orientation Not on file documented as of this encounter Plan of Treatment Not on file documented as of this encounter Results * XR CHEST PA AND LATERAL 2 VW (03/22/2018 10:59 AM MELT SUPERVISOR) Anatomical Region Laterality Modality Chest Computed Radiogr aphy 03/22/2018 10:5 9 AM MELT SUPERVISOR Impressions 03/22/2018 10:11 PM MELT SUPERVISOR IMPRESSION: See below. Exam: XR CHEST PA AND LATERAL 2 VW Date/Time of Exam: 03/22/2018 10:59 AM Reason For Exam: See Diagnosis. Diagnosis: Lower respiratory infection. Findings: Comparison: None There is atherosclerotic calcification of the aortic arch. Heart size and pulmonary vasculature are unremarkable. No consolidation, pneumothorax, or pleural effusion is identified. No acute osseous abnormality. Impression: No acute cardiopulmonary abnormality. [id number] Narrative Procedure Note Wally Esposito MD - 03/22/2018 IMPRESSION: See below. Exam: XR CHEST PA AND LATERAL 2 VW Date/Time of Exam: 03/22/2018 10:59 AM Reason For Exam: See Diagnosis. Diagnosis: Lower respiratory infection. Findings: Comparison: None There is atherosclerotic calcification of the aortic arch. Heart size and pulmonary vasculature are unremarkable. No consolidation, pneumothorax, or pleural effusion is identified. No acute osseous abnormality. Impression: No acute cardiopulmonary abnormality. [id number] Ana Laura [facility] Final Result documented in this encounter Visit Diagnoses Diagnosis Lower respiratory infection Other diseases of respiratory system, not elsewhere classified Lower respiratory infection Other diseases of respiratory system, not elsewhere classified documented in this encounter Care Teams Reconciler Relationship Specialty Start Date End Date Ana Laura Carrington FNP [address] [place] [address] PCP - General NURSE PRACTITIONER 03/22/18 documented as of this encounter
--- OUTSIDE RECORDS SUMMARY | 2025-01-05 13:47 | XMS_ITS | Clinical Summary ---
Author Organization [facility] Address [address] [place]: Epic Prelude ADT [place] [address] Care Team Providers Care Vice President Of Brand Management Name Role Phone Ana Laura Carrington CREMATORIUM OPERATOR Primary Care Provider Allergies Active Allergy Reactions Criticality Noted Date Comments Penicillins Hives High 06/08/2018 Sulfa (Sulfonamide Antibiotics) Hives High 05/21 Medications atorvastatin (LIPITOR) 40 mg tablet Take 1 Tablet by mouth daily at bedtime. 3 12/06/2018 Active lisinopriL (PRINIVIL) 40 mg tablet Take 1 Tablet by mouth daily. 1 12/06/2018 Active levothyroxine 50 mcg tablet Take 1 Tablet by mouth daily. 1 10/13/2018 Active nizatidine (AXID) 300 mg capsule Take 1 Capsule by mouth daily at bedtime. 3 12/15/2018 Active metoprolol tartrate (LOPRESSOR) 50 mg tablet Take 50 mg by mouth 2 times daily. 1 12/06/2018 Active mirtazapine (REMERON) 15 mg tablet Take 15 mg by mouth daily at bedtime. 06/08/2018 Active ergocalciferol, vitamin D2, (VITAMIN D ORAL) Take by mouth. 06/08/2018 Active Cetirizine 10 mg Capsule Take by mouth. 06/08/2018 Active montelukast (SINGULAIR) 10 mg tablet Take 10 mg by mouth daily at bedtime. 06/08/2018 Active ferrous gluconate 324 mg (38 mg iron) tablet Take 324 mg by mouth. 06/08/2018 Active omega-3 acid ethyl esters (LOVAZA) 1 gram Capsule Take 4 Grams by mouth daily. 06/08/2018 Active aspirin (MARIAM CHEWABLE) 81 mg Tablet, Chewable Take 81 mg by mouth daily. 06/08/2018 Active turmeric 400 mg Capsule Take by mouth. 06/08/2018 Active FLUoxetine (PROzac) 20 mg capsule Take 20 mg by mouth daily. 06/08/2018 Active loratadine 10 mg Capsule Take by mouth. 06/08/2018 Active multivit,calc,m ins/iron/folic (ONE DAILY WOMEN'S HEALTH ORAL) Take by mouth. 06/08/2018 Active hydroCHLOROthia zide (HYDRODIURIL) 12.5 mg tablet Take 12.5 mg by mouth daily. 06/08/2018 Active Encounters Date Type Department Care Team Description 12/11/2024 External Device Data ST[facility] ABSTRACTION Provider, Abstract 12/10/2024 External Device Data [facility] ABSTRACTION Provider, Abstract 11/05/2024 External Device Data [facility] ABSTRACTION Provider, Abstract from Last 3 Months Family History Medical History Relation Name Comments Heart Disease Brother Heart Disease Father Macular Degen Father Valvular Heart Disease Mother Cancer Sister 1 Blood Disorder Sister 2 factor 5 Relation Name Status Comments Brother Alive Daughter Alive Father Mother Sister 1 Alive Sister 2 Alive Son Alive Social History Tobacco Use Types Packs/Day Years Used Date Smoking Tobacco: Never Smokeless Tobacco: Never Alcohol Use Standard Drinks/Week Comments Never 0 (1 standard drink = 0.6 oz pur e alcohol) Comments Unknown Sex and Gender Information Value Date Recorded Sex Assigned at Not on file Legal Sex Female 3:23 PM COW RIDER Gender Identity Not on file Sexual Orientation Not on file Last Filed Vital Signs Vital Sign Reading Time Taken Comments Blood Pressure 142/79 01/08/2019 12:45 PM COW RIDER Pulse 57 01/08/2019 12:45 PM COW RIDER Temperature 36.4 C (97.6 F) 06/08/2018 6:50 PM CDT Respiratory Rate 18 06/08/2018 6:50 PM CDT Oxygen Saturation - - Inhaled Oxygen Concentration - - Weight 108.3 kg (238 lb 12.8 oz) 2018 12:45 PM COW RIDER Height 165.1 cm (5' 5 ) 01/08/2019 12:4 5 PM COW RIDER Body Mass Index 39.74 01/08/2019 12:45 PM COW RIDER Plan of Treatment Health Maintenance Due Date Last Done Comments PNEUMOCOCCAL VACCINE 50+ YEARS (1 of 2 - PCV) 07/29/18 75 BREAST CANCER SCREENING 1995 COLORECTAL SCREENING 07/29/2000 Colorectal Cancer Screening 07/29/2000 FIT-DNA Q 3 years 07/29/2000 FIT/FOBT Q 1 year 07/29/2000 Flex Sig/CT Colonography Q 5 years 07/29/2000 ZOSTER VACCINE (1 of 2) 07/29/2005 OSTEOPOROSIS SCREENING 07/29/2020 INFLUENZA VACCINE (#1) 2024 RSV VACCINE (60+ or ) (1 - 1-dose 75+ series) 07/29/2030 DTAP/TDAP/TD VACCINES (2 - Td or Tdap) 04/23/[address] [place] [place] [id number] [facility] MEDICARE BCBS MEDICARE HMO Care Teams Vice President Of Brand Management Relationship Specialty Start Date End Date Ana Laura Carrington FNP [address] [place] [address] PCP - General NURSE PRACTITIONER 03/22/18
[2025-01-05 13:53] VITALS: BP 175/76; PULSE 73; TEMP 36.8; O2SAT 97; BMI 36.6
--- NOTE | 2025-01-05 14:55 | ED_ITS ---
HPI - Wound/Laceration General: Chief Complaint: Wound/Laceration Stated Complaint: Lt hand multi finger lac Time Seen by Provider: 01/05/25 14:38 History of Present Illness: Patient is 69-year-old with status post TAVR, presents to the emergency room after pruning her garden, and removing the tip of fingers #2 and 3 of her left hand. This occurred just prior to arrival. Patient states her tetanus is up-to-date. Associated symptoms: Denies chills, fever(s), nausea or vomiting Related Data Home Medications ?Medication ?Instructions ?Recorded ?Confirmed aspirin 81 mg tablet,delayed 162 mg PO QDAY 02/19/24 1 03/07/24 release (Adult Aspirin Regimen) loratadine 10 mg tablet (Claritin) 10 mg PO DAILY 06/2101/05/25 omega-3 fatty acids 1,000 mg 1,000 mg PO DAILY 5 01/05/25 capsule evolocumab 140 mg/mL subcutaneous 140 mg SUBCUT Q14D 1 03/07/24 01/05/25 pen injector (Saul Washington) fluoxetine 20 mg tablet 40 mg PO DAILY 01/05/2512/21 metoprolol succinate 25 mg 25 mg PO DAILY 01/05/25 tablet,extended release 24 hr montelukast 10 mg tablet 10 mg PO DAILY PRN allergies 01/05/25 01/05/25 Previous Rx's ?Medication ?Instructions ?Recorded epinephrine 0.3 mg/0.3 mL 0.3 mg (0.3 mL) IM Q4H PRN 0 05/13/24 injection, auto-injector (EpiPen anaphylaxis #2 ea 2-Taj) amlodipine 5 mg tablet 5 mg PO DAILY #90 tabs 07/23 clopidogrel 75 mg tablet 75 mg PO DAILY #90 tabs 05/14 losartan 100 mg tablet 100 mg PO QDAY #90 tabs 05/14 ezetimibe 10 mg tablet 10 mg PO DAILY #90 tabs 07/23 levothyroxine 50 mcg tablet 50 mcg PO DAILY #90 tabs 0 09/12/24 buspirone 10 mg tablet 10 mg PO BID #180 tabs 11/11 pantoprazole 20 mg tablet,delayed 20 mg PO DAILY #90 t abs 11/11/24 release tramadol 50 mg tablet 50 mg PO DAILY PRN pain #30 tabs 11/12/24 azithromycin 250 mg tablet See Rx Instructions PO .COM PLEX #6 12/31/24 (Zithromax Z-Taj) tabs prednisone 20 mg tablet See Rx Instructions .Route 1 03/02/24 .COMPLEX #11 tabs Allergies Allergy/AdvReac Type Severity Reaction Status Date / Time clindamycin (From Cleocin) Allergy Unknown unknown Verified 01/05/25 14:02 gemfibrozil (From Lopid) Allergy Unknown unknown Verified 01/05/25 14:02 Penicillins Allergy Unknown Unknown Verified 01/05/25 14:02 Sulfa (Sulfonamide Allergy Unknown unknown Verified 01/05/25 14:02 Antibiotics) Alpha-Gal Allergy Unknown Verified 01/05/25 14:02 ([id number]-1,3-Gala Review of Systems General: Reports: 10 or more systems reviewed and unremarkable except in HPI and below Const: Denies: fever(s) or chills Eyes: Denies: change in vision or blurry vision Card: Denies: chest pain or palpitations Resp: Denies: dyspnea or non-productive cough GI: Denies: abdominal pain, nausea or vomiting : Denies: flank pain or difficulty voiding Musc: Reports: extremity pain, extremity swelling, joint pain and limited range of motion; Denies: neck pain or back pain Neuro: Denies: headache(s), numbness in extremities, sensory changes or dizziness PFSH ED PFSH: Medical History (Updated 01/05/25 @ 16:32 by RHONDA Nugent) Peripheral arterial disease Hx of cardiac pacemaker [facility] 04/2024 by Millie Family history of stroke or transient ischemic attack in mother Mother in 40's with stroke Systolic murmur Anxiety Skin lesion Disorder of mitral valve Seasonal allergies Depression Dyslipidemia Vitamin D deficiency Essential hypertension Family History Other Cancer Heart disease Hypertension Stroke Social History Smoking and tobacco/nicotine status: former use of tobacco/nicotine Second hand smoke exposure: No Alcohol intake: never Substance/Drug Use: never Sexually active: Yes Do you think of yourself as: Straight/Heterosexual Current gender identity: Female Physical Exam Const: COMMON NORMALS: no acute distress, average body habitus and patient oriented x3 GENERAL APPEARANCE: cooperative and anxious HENMT: COMMON NORMALS: normocephalic and atraumatic HEAD & SCALP: normocephalic and atraumatic Lymph: LYMPHATIC: no lymphadenopathy noted Chest: COMMONS NORMALS: normal inspection of the chest and normal palpation of entire chest wall Resp: COMMON NORMALS: normal respiratory effort, No retractions and No use of accessory muscles Cardio: COMMON NORMALS: regular rate and regular rhythm RATE: regular rate RHYTHM: regular rhythm GI: COMMON NORMALS: Normal to inspection, nondistended, normoactive bowel sounds present, Soft to palpation, non-tender and No hepatosplenomegaly present PALPATION: Yes Soft to palpation and Yes No hepatosplenomegaly present : COMMON NORMALS: Yes no CVA tenderness BLADDER/KIDNEY EXAM: Yes no CVA tenderness Back/Pelvis: COMMON NORMALS: no CVA tenderness Extremity: COMMON NORMALS: capillary refill normal NARRATIVE EXTREMITY EXAM: Avulsion to the tip of left index finger, and a small amount of middle left finger avulsion. Actively bleeding Neuro: COMMON NORMALS: patient oriented x3 Procedures Laceration Laceration 1: Site: upper extremity Side (If applicable): left (mainly index) Size (cm): 1 Description: other (Partial tip amputation) Depth: simple, single layer Local Anesthetic: lidocaine 1% Amount of anesthesia used (mL): 5 Pre-repair: wound explored, irrigated extensively and deep structures intact Skin layer closed with: other (Silver nitrate) Size (cm): other (Silver nitrate stick) Number of sutures: 0 Technique: other (Silver nitrate stick) Nerve Block Nerve Block 1: Time out performed: Yes Local Anesthetic: lidocaine 1% Amount of anesthesia used (mL): 4 Side: left Nerve Blocks: digital Procedure Successful: Yes Patient Tolerated Procedure: no complications Additional Comments: Digital block to fingers #1, index, 2, middle finger, left Course Vital Signs: Vital signs: Vital Signs Temperature 98.3 F 01/05/25 13:53 Pulse Rate 74 01/05/25 15:30 Blood Pressure 178/69 01/05/25 15:30 Pulse Oximetry 94 01/05/25 15:30 Oxygen Delivery Me thod Room Air 01/05/25 15:30 MDM - Wound/Laceration Medical Decision Making Patient is a 69-year-old female with avulsion to left index and middle finger. Index finger worse than middle finger. Middle finger required 1X 10-second hold of silver nitrate. Middle finger required multiple cauterizations with silver nitrate. Bleeding was well-controlled. Patient was able to wash hands with antibacterial soap without issues. No further bleeding continued. All of her questions answered her satisfaction. Medical Records I reviewed the patient's medical records. No radiology studies performed this visit ED provider radiology interpretation(s): Patient refused Discharge Plan Discharge Patient Disposition: Home Clinical Impression: Avulsion, finger tip Qualifiers: Encounter type: initial encounter Qualified Code(s): S61.209A - Unspecified open wound of unspecified finger without damage to nail, initial encounter Condition: Stable Prescriptions: No Action aspirin [Adult Aspirin Regimen] 81 mg tablet,delayed release (DR/EC) 162 mg PO QDAY losartan 100 mg tablet 100 mg PO QDAY Qty: 90 1RF amlodipine 5 mg tablet 5 mg PO DAILY Qty: 90 1RF clopidogrel 75 mg tablet 75 mg PO DAILY Qty: 90 3RF azithromycin [Zithromax Z-Taj] 250 mg tablet See Rx Instructions PO .COMPLEX Qty: 6 0RF Rx Instructions: Take 500 mg today (day 1), then 250 mg daily for 4 days (days 2-5) PO prednisone 20 mg tablet See Rx Instructions .Route .COMPLEX Qty: 11 0RF Rx Instructions: Take 2 tablets by mouth daily x 3 days, then 1 tablet daily x 3 days, then 1/2 tablet daily x 3 days. omega-3 fatty acids 1,000 mg capsule 1,000 mg PO DAILY loratadine [Claritin] 10 mg tablet 10 mg PO DAILY ezetimibe 10 mg tablet 10 mg PO DAILY Qty: 90 3RF epinephrine [EpiPen 2-Taj] 0.3 mg/0.3 mL auto-injector 0.3 mg IM Q4H PRN (Reason: anaphylaxis) Qty: 2 0RF levothyroxine 50 mcg tablet 50 mcg PO DAILY Qty: 90 0RF buspirone 10 mg tablet 10 mg PO BID Qty: 180 0RF pantoprazole 20 mg tablet,delayed release (DR/EC) 20 mg PO DAILY Qty: 90 0RF tramadol 50 mg tablet 50 mg PO DAILY PRN (Reason: pain) Qty: 30 5RF montelukast 10 mg tablet 10 mg PO DAILY PRN (Reason: allergies) Repatha SureClick 140 mg/mL pen injector 140 mg SUBCUT Q14D fluoxetine 20 mg tablet 40 mg PO DAILY metoprolol succinate 25 mg tablet extended release 24 hr 25 mg PO DAILY Discharge Orders: Discharge ED (Routine); Ordered 01/05/25 Ordered By: Brianda Feliz Referrals: Aidan Orellana, DO [Primary Care Provider, Family Practice] Discharge Diet: Usual diet Discharge Activity: Resume usual activity Patient Instructions: Finger Amputation (ED), Patient Portal & Yogi Instructions Activity Restrictions/Additional Instructions: - Tylenol for pain - Ice to this area when you get home - Elevate - This area will turn white. For worsening redness or streaking, return to ED -Wash daily with antibacterial soap - If this rebleeds, return to ED. Thank you for choosing [facility] for your healthcare needs today. You have been screened and evaluated and felt safe for discharge. Health conditions do change or evolve sometimes and as such it is important that you follow up with your Primary Doctor to be re checked, 3-5 days is a general good time frame for follow up. You are always welcome to return to the ED for re assessment if your symptoms are worsening or you have new concerns Print Language: [place] Coding Level of Care Code ED Cost Engineer for Connor Carcamo
[2025-01-05 15:30] VITALS: BP 178/69; PULSE 74; O2SAT 94
--- NOTE | 2025-01-05 15:39 | PC.NURSE ---
MEDICATIONS SCANNED AND GIVEN TO PROVIDER FOR ADMINISTRATION.
== END 2025-01-05 16:44 | disposition home or self-care (01) ==
PROVIDERS: Emergency Provider Physician Assistant; PCP Family Medicine
DX: S61.311A Laceration without foreign body of left index finger with damage to nail, initial encounter (principal); S61.313A Laceration without foreign body of left middle finger with damage to nail, initial encounter; X58.XXXA Exposure to other specified factors, initial encounter; E78.5 Hyperlipidemia, unspecified; I10 Essential (primary) hypertension; Z95.0 Presence of cardiac pacemaker; Z87.891 Personal history of nicotine dependence
CPT/HCPCS: 12001; 99283; J9999

== ENCOUNTER → 2025-02-03 15:09 | Outpatient (BNVA) | payer MEDICARE, SELFPAY | PROVIDERS: PCP Family Medicine; Visit Provider Family Medicine | DX: E03.9 Hypothyroidism, unspecified (principal); I10 Essential (primary) hypertension; E55.9 Vitamin D deficiency, unspecified; E78.5 Hyperlipidemia, unspecified | CPT/HCPCS: 80053; 80061; 81000; 82306; 82607; 82746; 82785; 83735; 84439; 84443; 85025; 86001; 86003; 86008; 86140 ==